=== PATIENT | male | born 1945 | race Two or more races ===

== ENCOUNTER 2024-07-08 10:04 | Inpatient (IN) | payer MEDICARE, SELFPAY ==
[2024-07-08] VITALS (15 sets, daily range): BP systolic 126–161; BP diastolic 60–78; PULSE 56–80; RESP 16–18; TEMP 36.6–36.9; O2SAT 98–100; BMI 27.1; BMI 24.5
--- NOTE | 2024-07-08 10:15 | EKG_ITS ---
[facility] Test Date: 2024-07-08 Pat Name: VANESSA IZAGUIRRE Department: Room: - Gender: Male Wardrobe Assistant: : [id number] Requested By: ED Temporary Provider Order Number: [id number] Reading MD: ED Temporary Provider Measurements Intervals [place] Rate: 66 P: 28 MT: 135 QRS: -28 QRSD: 126 T: 59 QT: 393 QTc: 413 Interpretive Statements SINUS RHYTHM BORDERLINE LEFT AXIS DEVIATION [QRS AXIS < -20] MODERATE INTRAVENTRICULAR CONDUCTION DELAY [110+ ms QRS DURATION] Compared to ECG 07/24/2020 16:14:12 Myocardial infarct finding no longer present /store/S0/[id number].pdf
--- NOTE | 2024-07-08 10:31 | PD.EDRME ---
Rapid Medical Screening Exam E Arrival date/time: 07/08/24 10:04 78-year-old male with past medical history of GI bleed presents to the emergency department reporting was sent by primary care provider for evaluation due to dark tarry stools and rectal bleeding. Chief Complaint: General Adult/Misc Complain Vital signs: Vital Signs Temperature 97.9 F 07/08/24 10:28 Pulse Rate 80 07/08/24 10:28 Respiratory Rate 18 07/08/24 10:28 Blood Pressure 161/78 H 07/08/24 10:28 Pulse Oximetry (%) 99 07/08/24 10:28 Oxygen Delivery Method Room Air 07/08/24 10:28
[2024-07-08 11:32] LABS: Basophils # (Auto) 0.1 Thou/mm3 (0.0-0.2); Basophils % (Auto) 1 % (0-2.5); Eosinophils # (Auto) 0.1 Thou/mm3 (0.0-0.5); Eosinophils % (Auto) 1 % (0-10); Immature Granulocytes % (Auto) 0 % (0-0); Immature Granulocytes Auto 0.03 Thou/mm3 (0.00-0.00); Lymphocytes % (Auto) 10 % (10-50); Mean Corpuscular HGB Conc 27.4 g/dl (31.0-37.0); Mean Corpuscular Hemoglobin 18.8 pg (25.0-35.0); Mean Corpuscular Volume 68 fL (80-100); Monocytes # (Auto) 0.9 Thou/mm3 (0.0-0.8); Monocytes % (Auto) 10 % (0-12); Neutrophils # (Auto) 7.6 Thou/mm3 (1.8-7.7); Neutrophils % (Auto) 78 % (37-80); Nucleated Red Blood Cell % 0 /100 WBC (0); Platelet Count 539 Thou/mm3 (140-440); RDW Standard Deviation 44.3 fL (35.1-43.9); Red Blood Count 2.72 Miln/mm3 (4.50-5.90); White Blood Count 9.7 Thou/mm3 (3.8-10.6)
[2024-07-08 11:42] LABS: Hematocrit 18.6 % (41.0-53.0); Partial Thromboplastin Time 24.4 Seconds (22.0-36.0); Prothrombin Time 11.2 Seconds (9.0-12.2)
[2024-07-08 11:43] LABS: Hemoglobin 5.1 g/dL (13.5-16.0)
--- NOTE | 2024-07-08 11:45 | PC.NURSE ---
Pt. here to bed 12 from home, pt.'s daughter at bedside, pt. states he was sent by his Doctor for low blood. Pt. states for 3 years he has had bleeding ulcers, pt. states he used to be a heavy drinker but has had no alcohol for 6 months. Pt. states when he walks he gets SOB and his legs start to hurt. Pt. states his stool has been dark. Pt. denies any vomiting. Pt. states no pain at this time.
--- NOTE | 2024-07-08 11:55 | PD.EDADULT ---
ED General RME/HPI General Chief complaint: General Adult/Misc Complain Stated complaint: DIZZY/CXP/LOW HGB 4.7, SENT BY PMD Time Seen by Provider: 07/08/24 11:45 Arrival date/time: 07/08/24 10:04 78 year old male with past medical history of anemia, GI bleed, alcohol abuse, present to emergency room with c/o of dizziness chest pain and low hgb, sent by PMD for blood transfusion. Per daughter patient had basic labs done 1 week, 1-2 weeks of dark stools . per patient alcohol free for 6 months. SEVERITY: Symptoms are described as being severe with limitations on activities of daily living CONTEXT: The patient is unable to identify any inciting events. DURATION/TIMING: The symptoms started approximately 1 week ago and have been constant since and have been progressive getting worse. ASSOCIATED SYMPTOMS: dizziness, chest pain, dark stool MODIFYING FACTORS: The patient is unable to identify any alleviating or aggravating symptoms. PERTINENT ROS: no fevers, no cough, no pleuritic pain, no ripping or tearing sensations, denies any lower extremity edema and no unilateral swelling, no nausea,vomiting, diarrhea, no dizziness/headache no rash no loc/syncope episode no abd/back pain no dsyuria,urgency,frequency PCP Aaron REVIEW OF SYSTEMS: See History of Present Illness - with the exception of those mentioned in the history of present illness, all other systems reviewed and reported as negative GENERAL: In general the patient is awake, interactive, in an emergency department gurney. HEAD/EYES/EARS/NOSE/THROAT: normo-cephalic, atraumatic, mucus membranes are moist, anicteric, palpebral conjunctiva is pink, trachea is midline. CARDIOVASCULAR: regular rate and regular rhythm, no murmurs, heart sounds are not distant, strong pulses in all four extremities that are equal and symmetric bilateral upper and lower extremities, normal capillary refill. CHEST/PULMONARY: normal chest rise and fall, good air movement, clear to auscultation bilaterally, normal inspiratory to expiratory ratios without evidence of respiratory distress. NECK: No midline/Paraspinal tenderness, no step off ROM/Strenght intact No Kernig and bruzinski sign. No trauma ABDOMEN: soft, not tender, no masses appreciated BACK: normal range of motion without pain. NEUROLOGICAL: cranio-facial features are symmetric, moves all four extremities equally without obvious limitations or weakness. EXTREMITY: no tenderness to palpation over the long bones or large joints of the bilateral upper and lower extremities, no joint swelling, no joint erythema, no signs of trauma, no unilateral leg swelling and no peripheral edema. SKIN: warm, dry, well-perfused, no jaundice, no rash, no telangiectasias or petechia. PSYCH: calm, cooperative, no evidence of psychosis or agitation RME / HPI RME / HPI narrative: 07/08/24 10:04 78-year-old male with past medical history of GI bleed presents to the emergency department reporting was sent by primary care provider for evaluation due to dark tarry stools and rectal bleeding. Related Data Previous Rx's ?Medication ?Instructions ?Recorded pantoprazole 40 mg tablet,delayed 40 mg PO QDAY #30 tabs 07/27/20 release (Protonix) Allergies Allergy/AdvReac Type Severity Reaction Status Date / Time No Known Allergies Allergy Verified 07/08/24 10:14 Course Course Course Narrative: plan ekg, basic labs, type screen blood transfusion [address] angio chest/abd protonix drip Quality Measures none Orders Category Date Time Status Horticultural Nursery Assistant Q4H START 00 Care 07/08/24 11:46 Active Continuous Pulse Oximetry Care 07/08/24 11:47 Active EKG (ED ONLY) *Do not use* NOW Care 07/08/24 10:15 Completed Consult to Gastroenterology Stat Cons 07/08/24 17:[address] angio chest abdomen pelvis Stat Exams 07/08/24 12:01 Completed EKG (ED Only) Stat Exams 07/08/24 10:15 Draft Alcohol, Blood Medical Stat Lab 07/08/24 10:57 Completed CBC Stat Lab 07/08/24 10:57 Completed Comprehensive Metabolic Panel Stat Lab 07/08/24 10:57 Completed Drug Screen,Urine Stat Lab 07/08/24 12:59 Completed Lipase Stat Lab 07/08/24 10:57 Completed PT [Prothrombin Time with INR] Stat Lab 07/08/24 10:57 Completed PTT [Partial Thromboplastin Time] Stat Lab 07/08/24 10:57 Completed Path Review Blood Smear Stat Lab 07/08/24 10:57 Completed Troponin I Stat Lab 07/08/24 10:57 Completed Type and Screen Stat Lab 07/08/24 10:57 Completed rbc [Red Blood Cells] Stat Lab 07/08/24 10:57 Completed Pantoprazole/Ns 80Mg IV Premix [Protonix/NS 80mg IV Med 07/08/24 12:03 Discontinued Premix] 80 mg in 100 ml IV X1 Vital Signs Vital signs: Vital Signs Temperature 97.9 F 07/08/24 10:28 Pulse Rate 80 07/08/24 10:28 Respiratory Rate 18 07/08/24 10:28 Blood Pressure 161/78 H 07/08/24 10:28 Pulse Oximetry (%) 99 07/08/24 10:28 Oxygen Delivery Method Room Air 07/08/24 10:28 Procedures -ED EKG Interpretation #1: Date of EK07/08/24 Time of EK:39 Rate: 66 Interpretation: Reviewed by me EKG Impression: Normal sinus rhythm, No acute ST-T changes and No ischemic changes MDM Patient data External records reviewed:: [facility] previous records Clinical information provided by:: patient and family Social determinants that could affect healthcare access:: none Patient has the following chronic illnesses:: anemia, gi bleed alcohol use How is presenting disease/condition affected by chronic disease/condition?: exacerbated by Evaluation data The following diagnostics were reviewed and interpreted by me:: lab results, radiology exam(s) and EKG tracing(s) Lab and/or radiology exams considered but not ordered:: none Interpretation Summary: CTA:Multiple noncalcified pulmonary nodules, with this study as baseline recommend 6 month follow-up CT chest without contrast Thickening of the lower wall of the esophagus, consider reflux esophagitis Gastritis pattern Suspicious for subtle mass in the cecum, recommend colonoscopy follow-up to exclude malignant neoplasm of the colon cbc: hgb 5.1 + anemia cmp wnl trop negative drug: negative alcohol negative Medications Medications considered but not ordered:: none Medication administrations:: Medication Administration History Discontinued Medications Pantoprazole Sodium (Protonix/Ns 80mg Iv Premix) 80 mg in 100 mls @ 400 mls/hr IV X1 ONE Stop: 07/08/24 12:17 Last Admin: 07/08/24 13:04 Dose: 400 mls/hr Documented By: ED as stated above Consultations Consultation(s) initiated? (list below): Yes Consultation #1 (Physician, Specialty, Details): GI: Dr. Rojas will come in for consult. clear diet and start on golytely, will do colonoscopy in the morning Diagnosis Differential Diagnosis ED Complaint MDM: GI bleeding, bleeding ulcer, sbo, colitis, anemia low hgb , mass Most likely diagnosis given after review of the tests above:: low hgb, Admission Indicated Admission indicated?: indicated Explain why admission is indicated or not indicated:: low hgb and mass in cecum Admission Request Was there a request for admission?: Yes Admission Attestation Admission request attestation: Discussed case with Dr. Rendon from Hospitalist service regarding admission. report will give report to caustic cresylate shift superintendent to admit patient. Discussed patients ED course, exam findings, labs, and radiology results. The Hospitalist agrees to accept the patient for admission. Disposition Plan Disposition Plan: Admit Medical Decision Making Differential Diagnosis Differential Diagnosis: GI bleeding, bleeding ulcer, sbo, colitis, anemia low hgb , mass Lab Data 07/08/24 10:57 07/08/24 10:57 Labs: Lab Results 07/08/24 07/08/24 Range/Units 10:57 12:59 WBC 9.7 (3.8-10.6) Thou/mm3 RBC 2.72 L (4.50-5.90) Miln/mm3 Hgb 5.1 L* (13.5-16.0) g/dL Hct 18.6 L* (41.0-53.0) % MCV 68 L (80-100) fL MCH 18.8 L (25.0-35.0) pg MCHC 27.4 L (31.0-37.0) g/dl RDW Std Deviation 44.3 H (35.1-43.9) fL Plt Count 539 H (140-440) Thou/mm3 Neut % (Auto) 78 (37-80) % Lymph % (Auto) 10 (10-50) % [place] % (Auto) 10 (0-12) % Eos % (Auto) 1 (0-10) % Baso % (Auto) 1 (0-2.5) % Neut # (Auto) 7.6 (1.8-7.7) Thou/mm3 Lymph # (Auto) 1.0 (1.0-4.8) Thou/mm3 [place] # (Auto) 0.9 H (0.0-0.8) Thou/mm3 Eos # (Auto) 0.1 (0.0-0.5) Thou/mm3 Baso # (Auto) 0.1 (0.0-0.2) Thou/mm3 Immature Gran # (Auto) 0.03 H (0.00-0.00) Thou/mm3 Absolute Nucleated RBC 0.00 (0.00-0.00) Thou/mm3 Immature Gran % 0 (0-0) % Nucleated RBC % 0 (0) /100 WBC Smear Path Review Sent to Pathologist PT 11.2 (9.0-12.2) Seconds INR 1.0 (0.9-1.3) APTT 24.4 (22.0-36.0) Seconds Sodium 133 L (136-145) mMol/L Potassium 4.0 (3.4-5.1) mMol/L Chloride 101 (98-107) mMol/L Carbon Dioxide 23.7 (20.0-31.0) mMol/L Anion Gap 8 (7-16) BUN 9 (9-23) mg/dL Creatinine 0.8 (0.6-1.3) mg/dL Estim Creat Clear Calc 86.2 (>60) mL/min eGFR > 60 (60 - ) See Note BUN/Creatinine Ratio 11 L (12-20) Ratio Glucose 167 H (74-106) mg/dL Calculated Osmolality 269 L (275-295) Calcium 9.3 (8.3-10.6) mg/dL Corrected Calcium 9.3 (8.5-10.1) mg/dL Total Bilirubin 0.5 (0.3-1.2) mg/dL AST < 10 (0-34) U/L ALT < 7 L (10-49) U/L Alkaline Phosphatase 65 (46-116) U/L Troponin I 0.030 (0.0-0.045) ng/mL Total Protein 7.6 (5.7-8.2) gm/dL Albumin 4.3 (3.4-4.8) gm/dL Globulin 3.3 (2.3-3.5) gm/dL Albumin/Globulin Ratio 1.3 (1.2-2.2) Lipase 26 (12-53) U/L Urine Opiates Screen Negative (Negative) Urine Fentanyl Screen Negative (Negative) Ur Barbiturates Screen Negative (Negative) U Amphetamin/Meth Scrn Negative (Negative) U Benzodiazepines Scrn Negative (Negative) U Cocaine Metab Screen Negative (Negative) U Marijuana (THC) Screen Negative (Negative) Ethyl Alcohol < 3.0 (0-10.0) mg/dL Blood Type O Positive Antibody Screen NEGATIVE Crossmatch See Detail Blood Bank Wristband ID Yes Discharge Plan Plan Patient Disposition: Admit Acute Care w/in Hospital Prescriptions/Referrals Prescriptions/Med Rec: No Action pantoprazole [Protonix] 40 mg tablet,delayed release (DR/EC) 40 mg PO QDAY Qty: 30 0RF Problem List Clinical Impression: Low hemoglobin, Acute GI bleeding, Cecum mass Patient/Caregiver Discharge Instructions Print Language: Peruvian Stand Alone Forms: Padmini Award Info., Patient Portal Info Letter
[2024-07-08 11:57] LABS: Alanine Aminotransferase < 7 U/L (10-49); Albumin, Serum 4.3 gm/dL (3.4-4.8); Albumin/Globulin Ratio 1.3 (1.2-2.2); Alkaline Phosphatase 65 U/L (46-116); Anion Gap 8 (7-16); Aspartate Amino Transferase < 10 U/L (0-34); BUN/Creatinine Ratio 11 Ratio (12-20); Bilirubin,Total 0.5 mg/dL (0.3-1.2); Blood Urea Nitrogen 9 mg/dL (9-23); Calcium 9.3 mg/dL (8.3-10.6); Calcium (Corrected) 9.3 mg/dL (8.5-10.1); Carbon Dioxide 23.7 mMol/L (20.0-31.0); Chloride 101 mMol/L (98-107); Creatinine (Component) 0.8 mg/dL (0.6-1.3); Estimated Creatinine Clearance 86.2 mL/min (>60); Globulin 3.3 gm/dL (2.3-3.5); Glucose 167 mg/dL (74-106); Lipase 26 U/L (12-53); Osmolality,Calculated 269 (275-295); Sodium 133 mMol/L (136-145); Total Protein 7.6 gm/dL (5.7-8.2); eGFR > 60 See Note
--- NOTE | 2024-07-08 12:01 | XR_ITS ---
Examination: CTA chest, with intravenous contrast. CTA abdomen, with intravenous contrast. CTA pelvis, with intravenous contrast. 2-D sagittal and coronal reconstructions. 3-D reconstructions. Date and time of exam: July 08, 2024 1642 hours INDICATIONS: Gastrointestinal bleeding today, with anemia on laboratory examination CTDI vol (mgy) 10.5 DLP (MGycm) 649 Technique: Multiple CTA images, 2.0 mm slice thickness, obtained chest, abdomen, pelvis, with the high-resolution 64 slice scanner. 100 cc Isovue-370 is administered intravenously. Sagittal and coronal 2-D reconstructions are obtained. 3-D reconstructions, angiographic images are obtained. 3-D postprocessing, including vascular maximum intensity projections. Low dose protocols were performed. One or more of the following dose reduction techniques were used; automated exposure control, adjustment of the mA and/or KV according to patient size, use of iterative reconstruction technique. Findings: No thoracic aortic aneurysm dilatation or dissection No pulmonary artery emboli No paratracheal tracheobronchial or bronchopulmonary adenopathy 6 mm pulmonary nodule left midlung image 146 4 mm pulmonary nodule right upper lobe and 47 3 mm pulmonary nodule right upper lobe image 158 4 mm pulmonary nodule lingular segment image 171 4 mm pulmonary nodule lingular segment image 201 3 mm pulmonary nodule right lower lobe image 222 No pneumonia or pulmonary edema Lower esophageal wall is thickened No visualized liver or splenic lesion Diffuse gastric mucosal thickening No pancreatic mass Minor nodular thickening left adrenal gland No renal or ureteral calculi Coronal image 79 suspicious for subtle masslike area in the cecum, axial image 217, measuring 5 cm in dimension No bowel obstruction Normal appendix Colonic diverticulosis Urinary bladder intact AP prostate dimension 4.2 cm Moderate osteopenia with advanced degenerative disc disease L5-S1 IMPRESSION: Multiple noncalcified pulmonary nodules, with this study as baseline recommend 6 month follow-up CT chest without contrast Thickening of the lower wall of the esophagus, consider reflux esophagitis Gastritis pattern Suspicious for subtle mass in the cecum, recommend colonoscopy follow-up to exclude malignant neoplasm of the colon
[2024-07-08 12:26] LABS: Path Review Blood Smear Sent to Pathologist
[2024-07-08 12:49] LABS: Alcohol, Blood Medical < 3.0 mg/dL (0-10.0)
[2024-07-08] MEDS: PANTOPRAZOLE/NS 80MG IV PREMIX 80 MG/100 ML BAG 400 MG IV (13:04)
--- NOTE | 2024-07-08 13:22 | PC.NURSE ---
pt. signed consent for blood transfusion. Daughter at bedside.
[2024-07-08 13:27] LABS: Amphetamine/Methamp Scrn,U Negative (Negative); Barbiturate Screen,Urine Negative (Negative); Benzodiazepines Screen,Urine Negative (Negative); Benzoylecgonine Screen, Ur Negative (Negative); Fentanyl Screen,Urine Negative (Negative); Opiate Screen,Urine Negative (Negative); THC Screen,Urine Negative (Negative)
--- NOTE | 2024-07-08 14:16 | PC.NURSE ---
Pt.'s Carla at bedside.
--- NOTE | 2024-07-08 14:17 | PC.NURSE ---
Pt. denies dizziness at this time, pt. states when he walks he gets dizzy.
--- NOTE | 2024-07-08 18:13 | EVENTNT_ITS ---
<Statement entered by Ashanti Arita MD - 07/11/24 14:50> Attending attestation: 78 year old male presented with fatigue found to have symptomatic anemia. CT noted mass and colonoscopy pending. I reviewed above note and agree with findings and plans. I have also personally examined the patient with medicine team and went over assessment and plan with medical team including architecture internship and resident physician. Documentation for date of: 07/08/24 Event Note Event Note: The patient is a 78-year-old male with significant past medical history of alcohol use disorder, hypertension, hypercholesterolemia who presented to ED with chief complaint of dizziness and chest pain with low hemoglobin was sent by PMD for blood transfusion. ED physician ordered 3 units PRBC, and consulted Dr. Rojas who will proceed with colonoscopy tomorrow. The patient is supposed to be started on GoLytely and clear liquid diet. As we received the call from ED physician after 6 PM, we will sign off this patient to the night team. The patient's management plan was discussed with my attending physician MD Andrew Pacheco MD, PGY2
--- NOTE | 2024-07-08 19:42 | PC.NURSE ---
IN TO ASSESS PT AT THIS TIME. INTRODUCED SELF TO PT. PT LYING IN GURNEY SPEAKING WITH RESIDENT. PT DENIES ANY PAIN AT THIS TIME. PT A/OX3 GCS 15. CALL LIGHT WITHIN REACH.BED AT LOWEST POSITION. DAUGHTER AT BEDSIDE,
--- NOTE | 2024-07-08 20:09 | ESHP_ITS ---
Documentation for date of: 07/08/24 [facility] History of Present Illness History of present illness: CC: low hemoglobin sent from PCP Patient is a 78-year-old male with a past medical history of hypertension, diabetes mellitus type 2 non-insulin dependent, GERD, peptic ulcer disease, hyperlipidemia (?), alcohol use disorder recently quit about 6 months ago who presented to the emergency room via primary care physician's office after hemoglobin result showed severe anemia. Patient stated he has been having lower GI bleed for the past 3 months but that it is not the first time this has happened. Described stools as dark . Increasing dyspnea upon exertion, patient states that after gardening he has to take a break and sit down in order to catch his breath. Positive for dizziness, patient stated that he feels lightheaded with exertion, denied seizure-like activity, and denied loss of consciousness. Dry cough. Per daughter at bedside, recent 20 lbs weight loss within the last 3 months. Decrease appetite. Denied any recent sick contacts, pyrexia, or chills. Negative for orthopnea and denied paroxysmal nocturnal orthopnea. [address] Rojas found hemorrhoids, diverticulosis, and sessile polyps. Hospitalization in [place] in 2021 for stomach ulcers . Admitted on (07/08/2024) for Acute GI bleed. ER Course: Vitals: BP 161/78, HR 80, RR 18, SpO2 99% RA CBC (07/08/2024): Hgb 5.1, Hct 18.6, MCV 68, Plt count 539 CMP (07/08/2024): Na 133, K 4.0, GFR >60, BUN 8, Cr 0.8 Glucose [address] Chest/Abdomen/Pelvis CTA (07/08/2024): Multiple noncalcified pulmonary nodules, with this study as baseline recommend 6, month follow-up CT chest without contrast. Thickening of the lower wall of the esophagus, consider reflux esophagitis. Gastritis pattern. Suspicious for subtle mass in the cecum, recommend colonoscopy follow-up to exclude malignant neoplasm of the colon EKG: Sinus Tachy Meds: Pantoprazole 80 mg IV X 1, 2 units of PRBC PMH: -Hypertension -Diabetes Mellitus Type 2 -Peptic Ulcer Disease -Hyperlipidemia (?) -Alcohol Use Disorder -GERD Past Surgical History: Colonoscopy 2019 [facility] Hospitalization for peptic ulcers 2021 Home Medication: -Non-Adherent to Medication (patient came in with 3 bags, mostly takes diabetic medication only) -Aspirin 81 mg-stopped taking aspirin/on and off -jentadueto xr 5-1000 mg -Lisinopril 5 mg (?) vs Lisinopril 20 mg ? -Furosemide 20 mg (?) not taking medication Allergies: None Social History: -Alcohol Use Disorder, drank a lot per daughter at bedside beer/vodka. Quit 6 months ago -Former Smoker, quit >20 years ago (could not recall how long or how many packs per day). Code Status: Full Code Review of Systems Review of Systems Narrative Review of Systems: General appearance: YES weight change (dropped 20 lbs), YES fatigue, NO weakness, NO fever, NO chills, NO night sweats, YES cough Skin: NO rash, NO itching, NO sores, NO moles HEENT: NO Trauma, NO nausea, NO vomiting, NO visual changes, NO blurry vision, NO double vision, NO tinnitus, NO vertigo, NO ear discharge, NO rhinorrhea, NO stuffiness, NO sneezing, NO allergy, NO epistaxis. NO Hoarseness, NO sore throat, NO swollen neck. Cardiac: NO Palpitations, YES dyspnea on exertion, NO orthopnea, NO paroxysmal nocturnal dyspnea, NO edema Respiratory: YES Shortness of Breath, NO Wheezing,YES Cough, NO Sputum, NO hemoptysis GI:Decrease appetite, NO nausea, NO vomiting, NO dysphagia, NO changes in bowel frequency, YES stool color, dark stool, NO diarrhea, NO constipation, NO hemetemesis previously had hemetemsis with hemorrhoids, YES hemorrhoids, YES melena, NO hematechezia, YES abdominal pain, NO jaundice Renal: NO frequency, NO hesitancy, NO urgency, NO hematuria, NO nocturia, NO incontinence MSK: NO muscle weakness, NO gout, NO arthritis, NO muscle stiffness Neuro: NO headaches, NO tremors, NO weakness, NO paralysis, NO seizures, NO loss of consciousness, NO numbness. Hem: YES anemia, NO easy bruising/bleeding, NO petechiae, NO purpura Endo: NO heat/cold intolerance, NO excessive sweating, NO polyuria, NO polydipsia, NO polyphagia, NO thyroid problems, YES diabetes Pysch: NO mood, NO anxiety, NO depression Exam Vital Signs Temp Pulse Resp BP Pulse Ox O2 Del Method 98.1 F 63 16 141/64 H 100 Room Air 07/08/24 19:41 07/08/24 19:41 07/08/24 19:41 07/08/24 19:41 07/08/24 19:41 07/08/24 19:41 Narrative Exam General Appearance: Alert & Oriented X3, well-nourished male who is lying in bed in no acute distress HEENT: Skull symmetrical and atraumatic. Conjunctivae pale pink and moist. Pupils equal, round, reactive to light and accommodation (PERRL). External ear without lesion or discharge. Straight, nares patient, mucosa pink, no discharge. No thyroid nodule appreciated. No cervical lymphadenopathy. Cardio: Normal Rate and Rhythm with S1 and S2 heart sounds. No murmurs or extra heart sounds auscultated. No bruits on carotid auscultation. No peripheral edema or cyanosis. Lungs: Symmetric with good expansion. Chest and back non-tender. Breath sounds vesicular without crackles, wheezing or rhonchi Abdomen: Left Lower Quadrant tenderness upon palpation, Non-distended, Normal Reactive Bowel Sounds Neuro: Alert, cooperative, oriented to person, place, and time. Speech clear. CN grossly intact. Upper motor strength 5/5 and Lower motor strength 5/5. Sensation intact. Results: Labs 07/08/24 10:57 07/08/24 10:57 Labs: Short CBC 07/08/24 Range/Units 10:57 WBC 9.7 (3.8-10.6) Thou/mm3 Hgb 5.1 L* (13.5-16.0) g/dL Hct 18.6 L* (41.0-53.0) % Plt Count 539 H (140-440) Thou/mm3 BMP 07/08/24 10:57 Sodium 133 L Potassium 4.0 Chloride 101 Carbon Dioxide 23.7 BUN 9 Creatinine 0.8 Glucose 167 H Calcium 9.3 Cardiac Enzymes 07/08/24 Range/Units 10:57 Troponin I 0.030 (0.0-0.045) ng/mL Liver Function 07/08/24 Range/Units 10:57 Total Bilirubin 0.5 (0.3-1.2) mg/dL AST < 10 (0-34) U/L ALT < 7 L (10-49) U/L Alkaline Phosphatase 65 (46-116) U/L Albumin 4.3 (3.4-4.8) gm/dL Quality Measures Quality Measures none Advance care planning discussed with:: patient Medications Home Medications and Allergies Allergies Allergy/AdvReac Type Severity Reaction Status Date / Time No Known Allergies Allergy Verified 07/08/24 10:14 Visit Medications Acetaminophen (Acetaminophen 325 Mg Tablet) 650 mg PO Q6H PRN PRN Reason: Mild Pain 1-3 or Fever >100.3 Stop: 08/07/24 20:01 Dextrose (Dextrose 50%-Water Inj 50 Ml Syringe) 25 ml IV Q15MIN PRN PRN Reason: BG 50-70 responsive npo pt Stop: 08/07/24 20:06 Dextrose (Dextrose 50%-Water Inj 50 Ml Syringe) 50 ml IV Q15MIN PRN PRN Reason: BG <50 OR BG <70 & pt unresponsive Stop: 08/07/24 20:06 Glucagon (Glucagon Inj 1 Mg Vial) 1 mg IM Q15MIN PRN PRN Reason: BG <70, and no IV access Insulin Human Lispro (Insulin Lispro (Admelog) 1 Unit/0.01 Ml Unit) 0 unit SC ACHS [facility]; Protocol Stop: 08/07/24 20:59 Lisinopril (Lisinopril 2.5 Mg Tablet) 5 mg PO QDAY [facility] Stop: 08/07/24 20:14 Ondansetron HCl (Ondansetron Inj 2 Mg/Ml Inj 2 Ml) 4 mg IV Q6H PRN; Protocol PRN Reason: NAUSEA OR VOMITING Stop: 08/07/24 20:01 Pantoprazole Sodium (Pantoprazole Inj 40 Mg Vial) 40 mg IVP Q12HR [facility] Stop: 08/07/24 20:59 Discontinued Medications Pantoprazole Sodium (Protonix/Ns 80mg Iv Premix) 80 mg in 100 mls @ 400 mls/hr IV X1 ONE Stop: 07/08/24 12:17 Last Admin: 07/08/24 13:04 Dose: 400 mls/hr Polyethylene Glycol/Electrolytes (Na Hart/Nahco3/Sidney/Peg (Golytely) 4,000 Ml Btl) 4,000 ml PO X1 ONE Stop: 07/08/24 18:10 Assessment & Plan Plan Patient is a 78-year-old male with a past medical history of hypertension, diabetes mellitus type 2, GERD, peptic ulcer disease, hyperlipidemia (?), alcohol use disorder recently quit about 6 months ago admitted on 07/08/2024 for acute GI bleed. #Acute GI Blood Loss #Acute Anemia #Dyspnea #Pre-syncope Etiology: Per history increasing dyspnea upon exertion and feeling light headed, which worsened within the last 3 months and with increasing melena in stools likely caused by acute blood loss. Given description of melena, upper GI loss such from worsening peptic ulcers can not be excluded. Likely worsened by previous history of alcohol use disorder. 2 units of PRBCs in ER. DDx: Given recent weight loss, previous history of polpys, and decrease appetite with CT finding of mass in cecum, malignancy can not be ruled out at this time. Less pre-syncope and increasing dyspena secondary to cardiac causes as EKG was unremarkable, no history of CHF. Diagnostic Testing: Vitals: BP 161/78, HR 80, RR 18, SpO2 99% RA CBC (07/08/2024): Hgb 5.1, Hct 18.6, MCV 68, Plt count 539 CMP (07/08/2024): Na 133, K 4.0, GFR >60, BUN 8, Cr 0.8 Glucose [address] Chest/Abdomen/Pelvis CTA (07/08/2024): Multiple noncalcified pulmonary nodules, with this study as baseline recommend 6, month follow-up CT chest without contrast. Thickening of the lower wall of the esophagus, consider reflux esophagitis. Gastritis pattern. Suspicious for subtle mass in the cecum, recommend colonoscopy follow-up to exclude malignant neoplasm of the colon EKG: Sinus Tachy Plan: -NPO after Midnight -GoLytely -2 units of PRBs in ER -Hgb & Hct post transfusion 1 AM draw -Protonix BID -Consult [employer], Dr. Rojas, appreciate recommendations (consulted from ER) #Diabetes Mellitus Type 2, non-insulin Patient is currently on Jentadueto Xr and seems to be adherent to medication. Last known A1c 5.4 on 08/05/2020. Glucose on admission 167. Plan -Sliding Scale Lispro (elders) -Follow up on Fasting Glucose AM Draw -Consider A1c during morning #Hypertension Patient is non-adherant to his hypertension medication and has several bottles of Lisinopril. Patient is also complaining of a cough which could be secondary to GERD but also related to JAYLIN-inhibitors. Plan: -Hold home Lisinopril 5 mg -Start Losartan 25 mg QDay #Hx of GERD #Hx of Peptic Ulcers Given past medical history of peptic ulcers per patient history and CT findings of thickened lower esophageal wall, likely indicating GERD with gastritis continue to Protonix. Plan Protonix BID #Incidental Pulmonary Nodules Follow up outpatient in 6 months Health Maintenance: Disp: Pt is currently admitted to floors for further management of acute GI blood loss, awaiting colonoscopy FEN: DVT: on subQ heparin Code: Full/DNR - The patient's plan was discussed with attending Dr. Isatu Mayo MD PGY1 Internal Medicine Attending Provider Attestation/Addendum I reviewed labs, imaging, EKG, home medications and prior available records. Face to face evaluation was performed by me. I have personally examined the patient and discussed assessment and plan with the IM team. I reviewed the resident note and agree with the plan with exceptions as below. 78-year-old male with history of hypertension, hyperlipidemia, peptic ulcer disease, and alcohol abuse who did not drink for the last 6 months, who presented with a chief complaint of dizziness, epigastric pain, and constipation. He was found to have acute symptomatic anemia. Acute symptomatic anemia: Likely in the setting of GI bleed which could be upper versus lower. 2 PRBC ordered in the ED. Monitor H&H posttransfusion. Management of GI bleed as below. GI bleed: Likely upper. In the setting of reported history of peptic ulcer disease. CT scan did show gastritis and concern for colonic mass. Patient/family is aware of this finding. Hold aspirin. Started the patient on IV Protonix 40 mg twice daily. Consulted GI for EGD/colonoscopy. N.p.o. after midnight. Pulmonary nodules: Incidental finding. Recommend follow-up in [address] chest without contrast. Dry cough: Hold home lisinopril. Albuterol as needed. Can use ARB instead.
[2024-07-08] MEDS: LOSARTAN POTASSIUM 25 MG TABLET PO (21:16)
[2024-07-08] MEDS: PANTOPRAZOLE INJ 40 MG VIAL IVP (21:16)
--- NOTE | 2024-07-08 22:55 | PD.IMCONS ---
HPI Data of Consult Requesting Physician: Lui Lunsford MD Primary Care Provider: Lencho Aaron MD Consult Narrative Reason for consult: H/H 5.1/18.6 abnormal CTAP History of present illness: 78 years male with history of hypertension and diabetes mellitus type 2 has been feeling weak short of breath presented to hospital with dizziness She had a blood workup done by the PCP and was found to be anemic sent to the emergency room He was found to have a hemoglobin of 5.1 hematocrit 18.6 with a platelet count of 5 39,000 BUN [address] abdomen and pelvis showed possible mass in the ascending colon area cecum in that location thickening of the esophageal wall and also gastric wall I was consulted cc:: cc: Lui Lunsford MD Review of Systems Review of Systems Systems Reviewed: All systems reviewed, normal except as documented Past Medical History Surgical History OTHER SURGICAL HX: As in the history of present illness Meds Home Medications and Allergies Home Medications ?Medication ?Instructions ?Recorded ?Confirmed ?Type No Known Home Medications 07/09/24 07/09/24 History Allergies Allergy/AdvReac Type Severity Reaction Status Date / Time No Known Allergies Allergy Verified 07/08/24 10:14 Exam Vital Signs Temp Pulse Resp BP Pulse Ox O2 Del Method 98.1 F 67 18 148/66 H 100 Room Air 07/08/24 20:00 07/08/24 21:16 07/08/24 20:00 07/08/24 21:16 07/08/24 20:00 07/08/24 19:41 Constitutional Comments: Chronically ill-appearing Routine Respiratory Exam Comments: Normal to auscultation Routine Abdominal Exam Comments: Soft nontender Results Labs 07/09/24 14:53 07/09/24 05:22 Labs: Short CBC 07/08/24 Range/Units 10:57 WBC 9.7 (3.8-10.6) Thou/mm3 Hgb 5.1 L* (13.5-16.0) g/dL Hct 18.6 L* (41.0-53.0) % Plt Count 539 H (140-440) Thou/mm3 BMP 07/08/24 10:57 Sodium 133 L Potassium 4.0 Chloride 101 Carbon Dioxide 23.7 BUN 9 Creatinine 0.8 Glucose 167 H Calcium 9.3 Cardiac Enzymes 07/08/24 Range/Units 10:57 Troponin I 0.030 (0.0-0.045) ng/mL Liver Function 07/08/24 Range/Units 10:57 Total Bilirubin 0.5 (0.3-1.2) mg/dL AST < 10 (0-34) U/L ALT < 7 L (10-49) U/L Alkaline Phosphatase 65 (46-116) U/L Albumin 4.3 (3.4-4.8) gm/dL Assessment and Plan Additional Assessment & Plan Additional Plan: # Occult GI bleeding # Acute posthemorrhagic anemia # Abnormal CT scanning of the abdomen and pelvis Plan Agree with blood transfusion GoLytely prep Consent obtained for fiberoptic colonoscopy with possible biopsy possible polypectomy under intravenous moderate sedation Patient will also need fiberoptic upper endoscopy after colonoscopy to evaluate the CAT scan abnormalities of thickening of the distal esophagus as well as gastric antrum Other medical problems include # Multiple pulmonary nodules most likely may represent metastatic colon carcinoma # Diabetes mellitus type 2 # Essential hypertension Thank you very much for the opportunity to participate in the care of this patient I
[2024-07-09] VITALS (28 sets, daily range): BP systolic 118–180; BP diastolic 57–87; PULSE 51–66; RESP 12–99; TEMP 36.1–36.7; O2SAT 92–100; BMI 24.4
[2024-07-09] MEDS: NA SU/NAHCO3/KC/PEG (Golytely) 4,000 ML BTL 4000 ML PO (00:12)
[2024-07-09 01:05] LABS: Hematocrit 21.2 % (41.0-53.0); Hemoglobin 6.2 g/dL (13.5-16.0)
[2024-07-09 05:37] LABS: Basophils # (Auto) 0.1 Thou/mm3 (0.0-0.2); Basophils % (Auto) 1 % (0-2.5); Eosinophils # (Auto) 0.3 Thou/mm3 (0.0-0.5); Eosinophils % (Auto) 4 % (0-10); Immature Granulocytes % (Auto) 0 % (0-0); Immature Granulocytes Auto 0.02 Thou/mm3 (0.00-0.00); Lymphocytes # (Auto) 1.3 Thou/mm3 (1.0-4.8); Lymphocytes % (Auto) 13 % (10-50); Mean Corpuscular HGB Conc 29.2 g/dl (31.0-37.0); Mean Corpuscular Hemoglobin 20.9 pg (25.0-35.0); Mean Corpuscular Volume 72 fL (80-100); Monocytes # (Auto) 1.3 Thou/mm3 (0.0-0.8); Monocytes % (Auto) 14 % (0-12); Neutrophils # (Auto) 6.5 Thou/mm3 (1.8-7.7); Neutrophils % (Auto) 68 % (37-80); Nucleated Red Blood Cell # 0.02 Thou/mm3 (0.00-0.00); Nucleated Red Blood Cell % 0 /100 WBC (0); Platelet Count 414 Thou/mm3 (140-440); RDW Standard Deviation 50.5 fL (35.1-43.9); Red Blood Count 3.01 Miln/mm3 (4.50-5.90); White Blood Count 9.5 Thou/mm3 (3.8-10.6)
[2024-07-09 05:43] LABS: Hematocrit 21.6 % (41.0-53.0); Hemoglobin 6.3 g/dL (13.5-16.0)
[2024-07-09 06:28] LABS: Alanine Aminotransferase < 7 U/L (10-49); Albumin, Serum 3.7 gm/dL (3.4-4.8); Albumin/Globulin Ratio 1.2 (1.2-2.2); Alkaline Phosphatase 56 U/L (46-116); Anion Gap 5 (7-16); Aspartate Amino Transferase 10 U/L (0-34); BUN/Creatinine Ratio 14 Ratio (12-20); Bilirubin,Total 0.8 mg/dL (0.3-1.2); Blood Urea Nitrogen 11 mg/dL (9-23); Calcium (Corrected) 9.2 mg/dL (8.5-10.1); Carbon Dioxide 26.2 mMol/L (20.0-31.0); Chloride 106 mMol/L (98-107); Creatinine (Component) 0.8 mg/dL (0.6-1.3); Estimated Creatinine Clearance 86.2 mL/min (>60); Globulin 3.1 gm/dL (2.3-3.5); Glucose 110 mg/dL (74-106); Osmolality,Calculated 274 (275-295); Potassium 3.8 mMol/L (3.4-5.1); Sodium 137 mMol/L (136-145); Total Protein 6.8 gm/dL (5.7-8.2); eGFR > 60 See Note
[2024-07-09] MEDS: PANTOPRAZOLE INJ 40 MG VIAL IVP ×2 (08:56→20:51)
[2024-07-09] MEDS: LOSARTAN POTASSIUM 25 MG TABLET PO (08:56)
--- NOTE | 2024-07-09 13:12 | CHAP ---
09:30 AM Visited by spiritual care volunteer Provided prayer for Patient.
--- NOTE | 2024-07-09 13:42 | ESPR_ITS ---
<Statement entered by Ashanti Arita MD - 07/11/24 14:50> Attending attestation: 78 year old male presented with fatigue found to have symptomatic anemia. CT noted mass and colonoscopy pending. I reviewed above note and agree with findings and plans. I have also personally examined the patient with medicine team and went over assessment and plan with medical team including internist medical doctor md and resident physician. Documentation for date of: 07/09/24 Subjective Subjective Interval history: No acute overnight events. Patient tolerating bowel prep well, states last BM was clear. Denies fever, chills, headaches, chest pain, sob, cough, GI or urinary symptoms. Exam Vital Signs Temp Pulse Resp BP Pulse Ox O2 Del Method O2 Flow Rate 97.2 F 59 L 23 H 151/68 H 99 Room Air 0 07/09/24 11:59 07/09/24 11:59 07/09/24 11:59 07/09/24 11:59 07/09/24 11:59 07/09/24 11:59 07/09/24 05:00 Narrative Exam GENERAL: Normal appearing elderly male, NAD HEENT: NCAT.?LAURA. Oral mucosa is moist. Patent Nares NECK: Supple, nontender, no thyromegaly, no meningismus, no JVD, no step offs CHEST: Symmetrical, atraumatic, and with equal expansion, Nontender on palpation no deformity and no crepitus. CARDIOVASCULAR: RRR, no m/g/r LUNGS: CTAB, no w/r/r. Symmetrical chest rise. No intercostal subcostal retraction. ABDOMEN: Soft, flat, nontender. No guarding/rebound tenderness/masses. +BS EXTREMITIES: Nontender.? No edema/cyanosis.?Moves all 4 extremities well, with full ROM and good CSM. SKIN: Warm and dry, no jaundice/rashes. MSK: No lumbar or midline, no CVA, no paraspinal muscle spasm or tenderness. NEURO: ERWIN x4, CN II-XII grossly intact.?No focal neurologic deficits. PSYCHIATRIC: Normal mood and affect, cooperative, no SI or HI or hallucinations. Objective Labs 07/09/24 14:53 07/09/24 05:22 Labs: Laboratory Results - last 24 hr 07/08/24 07/09/24 07/09/24 10:57 00:34 05:22 WBC 9.5 RBC 3.01 L Hgb 6.2 L* D 6.3 L* Hct 21.2 L* 21.6 L* MCV 72 L MCH 20.9 L MCHC 29.2 L RDW Std Deviation 50.5 H Plt Count 414 D Neut % (Auto) 68 Lymph % (Auto) 13 [place] % (Auto) 14 H Eos % (Auto) 4 Baso % (Auto) 1 Neut # (Auto) 6.5 Lymph # (Auto) 1.3 [place] # (Auto) 1.3 H Eos # (Auto) 0.3 Baso # (Auto) 0.1 Immature Gran # (Auto) 0.02 H Absolute Nucleated RBC 0.02 H Immature Gran % 0 Nucleated RBC % 0 Sodium 137 Potassium 3.8 Chloride 106 Carbon Dioxide 26.2 Anion Gap 5 L BUN 11 Creatinine 0.8 Estim Creat Clear Calc 86.2 eGFR > 60 BUN/Creatinine Ratio 14 Glucose 110 H D Calculated Osmolality 274 L Calcium 9.0 Corrected Calcium 9.2 Total Bilirubin 0.8 AST 10 ALT < 7 L Alkaline Phosphatase 56 Total Protein 6.8 Albumin 3.7 D Globulin 3.1 Albumin/Globulin Ratio 1.2 Blood Type O Positive Antibody Screen NEGATIVE Crossmatch See Detail Blood Bank Wristband ID Yes Quality Measures Quality Measures none Advance care planning discussed with:: patient Assessment & Plan Assessment Current Active Medications: Generic Name Dose Route Start Last Admin Trade Name Freq PRN Reason Stop Dose Admin Acetaminophen 650 mg 07/08/24 20:02 Acetaminophen 325 Mg Tablet PO 08/07/24 20:01 Q6H PRN Mild Pain 1-3 or Fever >100.3 Dextrose 25 ml 07/08/24 20:07 Dextrose 50%-Water Inj 50 Ml Syringe IV 08/07/24 20:06 Q15MIN PRN BG 50-70 responsive npo pt Dextrose 50 ml 07/08/24 20:07 Dextrose 50%-Water Inj 50 Ml Syringe IV 08/07/24 20:06 Q15MIN PRN BG <50 OR BG <70 & pt unresponsive Glucagon 1 mg 07/08/24 20:07 Glucagon Inj 1 Mg Vial IM Q15MIN PRN BG <70, and no IV access Insulin Human Lispro 0 unit 07/09/24 06:00 07/09/24 13:21 Insulin Lispro (Admelog) 1 Unit/0.01 Ml Unit SC 08/08/24 05:59 Not Given Q6HR HANNA Protocol Losartan Potassium 25 mg 07/08/24 20:30 07/09/24 08:56 Losartan Potassium 25 Mg Tablet PO 08/07/24 20:29 25 mg QDAY HANNA Administration Ondansetron HCl 4 mg 07/08/24 20:02 Ondansetron Inj 2 Mg/Ml Inj 2 Ml IV 08/07/24 20:01 Q6H PRN NAUSEA OR VOMITING Protocol Pantoprazole Sodium 40 mg 07/08/24 21:00 07/09/24 08:56 Pantoprazole Inj 40 Mg Vial IVP 08/07/24 20:59 40 mg Q12HR HANNA Administration Plan In summary: 78-year-old male with PMHx of HTN, T2DM, GERD, PUD, HLD, alcohol use disorder admitted for acute GI bleed. Patient n.p.o., on bowel prep for colonoscopy with Dr. Rojas. # Acute GI Blood Loss: Upper versus lower GI bleed # Dyspnea # Pre-syncope # GERD # PUD History of melanic stool, history of PUD, GERD, alcohol use (quit 6 months ago) Dyspnea and presyncope without fall 2/2 blood loss Hgb 5.1 on admission, s/p 3 units, repeat Hgb 6.3 CT mass in cecum, thickening lower esophagus Last colonoscopy 2019 with hemorrhoids, diverticulosis, sessile polyp ? N.p.o., bowel prep ? Continue PROTONIX 40 IV BID ? Colonoscopy with Dr. Rojas, appreciate recommendations ? Avoid NSAIDs ? Transfuse if Hgb less than 7 # T2DM GLUCOSE 167, pending A1c ? Holding home meds ? INSULIN sliding scale ? Daily GLUCOSE # Hypertension History of hypertension, on LISINOPRIL, complains of chronic cough BP 167/78 ? Holding home LISINOPRIL 5 mg ? Continue LOSARTAN 25 mg daily ? Consider discharging patient on LOSARTAN 25 mg daily of LISINOPRIL # Incidental Pulmonary Nodules As seen on CT: Multiple noncalcified pulmonary nodules ? Recommended follow-up with PCP outpatient Health maintenance Diet: NPO GI prophylaxis: PROTONIX DVT prophylaxis: SCD CODE STATUS: Full code Disposition: pending colonoscopy Patient case was discussed with attending, Dr. Juan J MD, and senior residents Dr. Jay Hankins and Dr. Rendon. Mamie Chen, DO PGYI Senior Resident Attestation: The patient is a 78-year-old male with significant past medical history of hypertension, DM 2, GERD, PUD, hyperlipidemia, alcohol due disorder currently admitted for acute blood loss anemia. Patient reported passing clear liquid as stool, after couple episodes of melenic stool. He reported doing better. His vitals were stable. Physical examination was unremarkable. Posttransfusion H&H was 7.0. The patient is pending colonoscopy this afternoon by GI Dr. Rojas. We will repeat H&H every 8 hourly and transfuse if hemoglobin less than 7. I discussed with and supervised the internist medical doctor md physician involved in the care of this patient. I personally saw and examined the patient and discussed the assessment and plan with the entire medicine team, including my attending. I agree with the assessment and plan as documented above. Andrew Rendon MD PGY2 Internal Medicine
--- NOTE | 2024-07-09 14:38 | PC.PT ---
PT eval only. Patient is I with transfers and ambulation without AD.
[2024-07-09 15:18] LABS: Hematocrit 23.6 % (41.0-53.0)
--- NOTE | 2024-07-09 18:03 | PC.NURSE ---
Patient was taken to endo for procedure at this time.
--- NOTE | 2024-07-09 19:05 | SUR.PHASEI ---
1905: Pt. AAOx4, vitals stable, breathing unlabored, no complaint of pain or nausea, no dressing in place, no active bleed noted, report received from Elaine SALAS and Becky SALAS.
--- NOTE | 2024-07-09 19:33 | SUR.PHASEI ---
1933: Pt. AAOx4, vitals stable, breathing unlabored, no complaint of pain or nausea, no dressing in place, no active bleed noted, gave report to Wanda SALAS prior to transfer to room 376. Pt. tolerated bites of ice chips well, family made aware of transfer to room.
[2024-07-09 20:00] LABS: Carcinoembryonic Antigen 1.1 ng/mL (0.0-5.0)
[2024-07-09 22:43] LABS: Hemoglobin 6.5 g/dL (13.5-16.0)
[2024-07-10] VITALS (32 sets, daily range): BP systolic 124–175; BP diastolic 61–82; PULSE 52–74; RESP 12–98; TEMP 36.1–37; O2SAT 95–100
[2024-07-10 06:04] LABS: Basophils # (Auto) 0.1 Thou/mm3 (0.0-0.2); Basophils % (Auto) 1 % (0-2.5); Eosinophils # (Auto) 0.4 Thou/mm3 (0.0-0.5); Eosinophils % (Auto) 4 % (0-10); Hematocrit 26.2 % (41.0-53.0); Immature Granulocytes % (Auto) 0 % (0-0); Immature Granulocytes Auto 0.03 Thou/mm3 (0.00-0.00); Lymphocytes # (Auto) 0.9 Thou/mm3 (1.0-4.8); Lymphocytes % (Auto) 9 % (10-50); Mean Corpuscular HGB Conc 30.2 g/dl (31.0-37.0); Mean Corpuscular Hemoglobin 22.6 pg (25.0-35.0); Mean Corpuscular Volume 75 fL (80-100); Monocytes # (Auto) 1.2 Thou/mm3 (0.0-0.8); Monocytes % (Auto) 11 % (0-12); Neutrophils # (Auto) 8.1 Thou/mm3 (1.8-7.7); Neutrophils % (Auto) 76 % (37-80); Nucleated Red Blood Cell % 0 /100 WBC (0); Platelet Count 404 Thou/mm3 (140-440); RDW Standard Deviation 55.4 fL (35.1-43.9); White Blood Count 10.7 Thou/mm3 (3.8-10.6)
[2024-07-10 06:05] LABS: Hemoglobin 7.9 g/dL (13.5-16.0)
[2024-07-10 06:47] LABS: Alanine Aminotransferase < 7 U/L (10-49); Albumin, Serum 3.4 gm/dL (3.4-4.8); Albumin/Globulin Ratio 1.1 (1.2-2.2); Alkaline Phosphatase 56 U/L (46-116); Anion Gap 7 (7-16); Aspartate Amino Transferase 10 U/L (0-34); BUN/Creatinine Ratio 9 Ratio (12-20); Bilirubin,Total 0.9 mg/dL (0.3-1.2); Blood Urea Nitrogen 7 mg/dL (9-23); Calcium 8.8 mg/dL (8.3-10.6); Calcium (Corrected) 9.3 mg/dL (8.5-10.1); Carbon Dioxide 25.9 mMol/L (20.0-31.0); Chloride 105 mMol/L (98-107); Creatinine (Component) 0.8 mg/dL (0.6-1.3); Estimated Creatinine Clearance 86.2 mL/min (>60); Globulin 3.1 gm/dL (2.3-3.5); Glucose 86 mg/dL (74-106); Osmolality,Calculated 272 (275-295); Potassium 3.8 mMol/L (3.4-5.1); Sodium 138 mMol/L (136-145); Total Protein 6.5 gm/dL (5.7-8.2); eGFR > 60 See Note
--- NOTE | 2024-07-10 07:58 | ESPR_ITS ---
<Statement entered by Ashanti Arita MD - 07/11/24 14:51> Attending attestation: 78 year old male presented with fatigue found to have symptomatic anemia. CT noted mass and colonoscopy finding of mass likely malignancy. Pending surgical intervention given bleeding mass. Hgb stable after blood transfusion. I reviewed above note and agree with findings and plans. I have also personally examined the patient with medicine team and went over assessment and plan with medical team including internist and resident physician. Documentation for date of: 07/10/24 Subjective Subjective Interval history: No acute overnight events. Patient maintained n.p.o. for EGD later today and possible surgery tomorrow. Denies fever, chills, headaches, chest pain, sob, cough, GI or urinary symptoms. Exam Vital Signs Temp Pulse Resp BP Pulse Ox O2 Del Method O2 Flow Rate 97.1 F 61 20 144/67 H 96 Room Air 0 07/10/24 07:44 07/10/24 07:44 07/10/24 07:44 07/10/24 07:44 07/10/24 07:44 07/10/24 07:44 07/10/24 03:52 Narrative Exam GENERAL: Normal appearing elderly male, NAD HEENT: NCAT.?LAURA. Oral mucosa is moist. Patent Nares NECK: Supple, nontender, no thyromegaly, no meningismus, no JVD, no step offs CHEST: Symmetrical, atraumatic, and with equal expansion, Nontender on palpation no deformity and no crepitus. CARDIOVASCULAR: RRR, no m/g/r LUNGS: CTAB, no w/r/r. Symmetrical chest rise. No intercostal subcostal retraction. ABDOMEN: Soft, flat, nontender. No guarding/rebound tenderness/masses. +BS EXTREMITIES: Nontender.? No edema/cyanosis.?Moves all 4 extremities well, with full ROM and good CSM. SKIN: Warm and dry, no jaundice/rashes. MSK: No lumbar or midline, no CVA, no paraspinal muscle spasm or tenderness. NEURO: ERWIN x4, CN II-XII grossly intact.?No focal neurologic deficits. PSYCHIATRIC: Normal mood and affect, cooperative, no SI or HI or hallucinations. Objective Labs 07/10/24 05:21 07/10/24 05:21 Labs: Laboratory Results - last 24 hr 07/08/24 07/09/24 07/09/24 10:57 14:53 22:24 WBC RBC Hgb 7.0 L 6.5 L* Hct 23.6 L 22.0 L MCV MCH MCHC RDW Std Deviation Plt Count Neut % (Auto) Lymph % (Auto) [place] % (Auto) Eos % (Auto) Baso % (Auto) Neut # (Auto) Lymph # (Auto) [place] # (Auto) Eos # (Auto) Baso # (Auto) Immature Gran # (Auto) Absolute Nucleated RBC Immature Gran % Nucleated RBC % Sodium Potassium Chloride Carbon Dioxide Anion Gap BUN Creatinine Estim Creat Clear Calc eGFR BUN/Creatinine Ratio Glucose Calculated Osmolality Calcium Corrected Calcium Total Bilirubin AST ALT Alkaline Phosphatase Total Protein Albumin Globulin Albumin/Globulin Ratio Carcinoembryonic Ag 1.1 Blood Type O Positive Antibody Screen NEGATIVE Crossmatch See Detail Blood Bank Wristband ID Yes 07/10/24 05:21 WBC 10.7 H RBC 3.50 L Hgb 7.9 L D Hct 26.2 L MCV 75 L MCH 22.6 L MCHC 30.2 L RDW Std Deviation 55.4 H Plt Count 404 Neut % (Auto) 76 Lymph % (Auto) 9 L [place] % (Auto) 11 Eos % (Auto) 4 Baso % (Auto) 1 Neut # (Auto) 8.1 H Lymph # (Auto) 0.9 L [place] # (Auto) 1.2 H Eos # (Auto) 0.4 Baso # (Auto) 0.1 Immature Gran # (Auto) 0.03 H Absolute Nucleated RBC 0.00 Immature Gran % 0 Nucleated RBC % 0 Sodium 138 Potassium 3.8 Chloride 105 Carbon Dioxide 25.9 Anion Gap 7 BUN 7 L Creatinine 0.8 Estim Creat Clear Calc 86.2 eGFR > 60 BUN/Creatinine Ratio 9 L Glucose 86 Calculated Osmolality 272 L Calcium 8.8 Corrected Calcium 9.3 Total Bilirubin 0.9 AST 10 ALT < 7 L Alkaline Phosphatase 56 Total Protein 6.5 Albumin 3.4 Globulin 3.1 Albumin/Globulin Ratio 1.1 L Carcinoembryonic Ag Blood Type Antibody Screen Crossmatch Blood Bank Wristband ID Quality Measures Quality Measures none Advance care planning discussed with:: patient Assessment & Plan Assessment Current Active Medications: Generic Name Dose Route Start Last Admin Trade Name Freq PRN Reason Stop Dose Admin Acetaminophen 650 mg 07/08/24 20:02 Acetaminophen 325 Mg Tablet PO 08/07/24 20:01 Q6H PRN Mild Pain 1-3 or Fever >100.3 Dextrose 25 ml 07/08/24 20:07 Dextrose 50%-Water Inj 50 Ml Syringe IV 08/07/24 20:06 Q15MIN PRN BG 50-70 responsive npo pt Dextrose 50 ml 07/08/24 20:07 Dextrose 50%-Water Inj 50 Ml Syringe IV 08/07/24 20:06 Q15MIN PRN BG <50 OR BG <70 & pt unresponsive Glucagon 1 mg 07/08/24 20:07 Glucagon Inj 1 Mg Vial IM Q15MIN PRN BG <70, and no IV access Insulin Human Lispro 0 unit 07/09/24 06:00 07/10/24 05:31 Insulin Lispro (Admelog) 1 Unit/0.01 Ml Unit SC 08/08/24 05:59 Not Given Q6HR HANNA Protocol Losartan Potassium 25 mg 07/08/24 20:30 07/09/24 08:56 Losartan Potassium 25 Mg Tablet PO 08/07/24 20:29 25 mg QDAY HANNA Administration Ondansetron HCl 4 mg 07/08/24 20:02 Ondansetron Inj 2 Mg/Ml Inj 2 Ml IV 08/07/24 20:01 Q6H PRN NAUSEA OR VOMITING Protocol Pantoprazole Sodium 40 mg 07/08/24 21:00 07/09/24 20:51 Pantoprazole Inj 40 Mg Vial IVP 08/07/24 20:59 40 mg Q12HR HANNA Administration Plan In summary: 78-year-old male with PMHx of HTN, T2DM, GERD, PUD, HLD, alcohol use disorder admitted for acute GI bleed. Admission Hgb 5.1, s/p 4 units RBCs, hemoglobin 7.9. Colonoscopy done showed multiple large polyps, ulcerative/obstructive mass at the hepatic flexure with oozing, among others. General surgery consulted. Patient will undergo EGD with Dr. Rojas noted today. Family deciding whether or not to proceed with general surgery here versus transfer to higher level of care. Oncology was also consulted. # Large, obstructive, ulcerated colonic mass # Acute GI Blood Loss: Upper versus lower GI bleed # Dyspnea # Pre-syncope # GERD # PUD History of melanic stool, history of PUD, GERD, alcohol use (quit 6 months ago) Dyspnea and presyncope without fall 2/2 blood loss Hgb 5.1 on admission, s/p 3 units, repeat Hgb 6.3 CT mass in cecum, thickening lower esophagus S/p 4 units RBC, Hgb 7.9 Colonoscopy showed >1 cm sessile polyp of transverse colon, large ulcerated/obstructive mass near hepatic flexure with oozing, few small diverticuli of the sigmoid and descending colon, and hemorrhoids, last resected and biopsy. GI recommended surgical consult. Will transfuse 1 unit RBC, 1 unit FFP for possible surgery tomorrow. ? EGD with Dr. Rojas ? General Surgery consulted ? Ordered CEA ? Continue PROTONIX 40 IV BID ? Avoid NSAIDs ? Transfuse if Hgb less than [address] Acharya, Dr. Duque, and Dr. Rojas's recommendations # T2DM GLUCOSE 86, pending A1c ? Holding home meds ? INSULIN sliding scale ? Daily GLUCOSE # Hypertension History of hypertension, on LISINOPRIL, complains of chronic cough BP 144/67 ? Holding home LISINOPRIL 5 mg 2/2 cough ? Continue LOSARTAN 25 mg daily ? Consider discharging patient on LOSARTAN 25 mg daily of LISINOPRIL # Incidental Pulmonary Nodules As seen on CT: Multiple noncalcified pulmonary nodules ? Recommended follow-up with PCP outpatient Health maintenance Diet: NPO GI prophylaxis: PROTONIX DVT prophylaxis: SCD CODE STATUS: Full code Disposition: pending colonoscopy Patient case was discussed with attending, Dr. Juan J MD, and senior residents Dr. Jay Hankins and Dr. Rendon. Mamie Chen, PGYI Senior Resident Attestation: The patient is a 78-year-old male with significant past medical history of hypertension, DM 2, GERD, PUD, hyperlipidemia, alcohol due disorder currently admitted for acute blood loss anemia. Patient reported doing well and denied any melenic stool. His vitals were stable. Physical examination was unremarkable. H&H was 7.9 and 26.2. The patient underwent colonoscopy yesterday evening, and was found to have greater than 1 cm sessile polyp at transverse colon, large ulcerated/obstructive mass near hepatic flexure with oozing, few small diverticuli of the sigmoid and descending colon, and hemorrhoids, last restricted and biopsy. We consulted Dr. Acharya for possible surgery. However, patient seems reluctant to proceed with surgery. Dr. Rojas might also proceed with EGD this afternoon. After EGD, we will proceed with surgery and removal of the colonic mass or discharge the patient to follow-up outpatient to proceed with surgery. I discussed with and supervised the internist physician involved in the care of this patient. I personally saw and examined the patient and discussed the assessment and plan with the entire medicine team, including my attending. I agree with the assessment and plan as documented above. Andrew Rendon MD PGY2 Internal Medicine
[2024-07-10 08:31] LABS: Carcinoembryonic Antigen 1.1 ng/mL (0.0-5.0)
[2024-07-10] MEDS: PANTOPRAZOLE INJ 40 MG VIAL IVP ×2 (08:36→20:53)
[2024-07-10] MEDS: LOSARTAN POTASSIUM 25 MG TABLET PO (08:36)
--- NOTE | 2024-07-10 09:40 | CHAP ---
Prayed with patient and family.
--- NOTE | 2024-07-10 11:31 | ESCONSULT_ITS ---
HPI Consult details Consult date: 07/10/24 Reason for consultation narrative: Obstructing and most likely malignant mass of ascending colon History of present illness: 78-year-old male with history of diabetes and hypertension was admitted with fatigue and anemia. Patient states that he is lost weight over the past 2 months and has had melanotic stools. He underwent colonoscopy by Dr. Rojas that revealed ulcerated and obstructing mass near hepatic flexure. Upon presentation patient was noted to have significant anemia requiring blood transfusion. According to patient's family he was hospitalized about 2 years ago and was treated for peptic ulcer disease. Review of Systems Constitutional Constitutional: Denies chills, Denies fever(s) and Reports weight loss Cardiovascular Cardiovascular: Denies chest pain and Denies dyspnea Respiratory Respiratory: Denies dyspnea Gastrointestinal Gastrointestinal: Denies abdominal pain, Reports melena, Denies nausea and Denies vomiting Genitourinary Genitourinary: Denies difficulty urinating Hematologic/Lymphatic Hematologic/Lymphatic: Denies easy bleeding and Denies easy bruising Past Medical History Surgical History OTHER SURGICAL HX: Injuries in the past Meds Home Medications and Allergies Home Medications ?Medication ?Instructions ?Recorded ?Confirmed ?Type No Known Home Medications 07/09/24 07/09/24 History Allergies Allergy/AdvReac Type Severity Reaction Status Date / Time No Known Allergies Allergy Verified 07/08/24 10:14 Exam Vital Signs Temp Pulse Resp BP Pulse Ox O2 Del Method O2 Flow Rate 97.1 F 72 20 144/67 H 96 Room Air 0 07/10/24 07:44 07/10/24 08:36 07/10/24 07:44 07/10/24 08:36 07/10/24 07:44 07/10/24 07:44 07/10/24 03:52 Constitutional Constitutional: no acute distress Routine Abdominal Exam Abdominal: Present soft, normoactive bowel sounds and hernia (Umbilical hernia that is nontender and reducible); Absent tenderness or distended Assessment & Plan Additional Assessment Additional comments: Ulcerated and obstructing mass near hepatic flexure most likely malignancy causing anemia Plan I had a lengthy discussion with patient and his family and explained to them that he will require exploratory laparotomy and right colectomy. They wish to discuss amongst themselves whether they want to proceed with a second opinion or a possible transfer to [facility]. He is awaiting upper endoscopy by Dr. Rojas today.
--- NOTE | 2024-07-10 12:45 | PC.SS ---
BUSINESS SUPERVISOR met with patient to complete initial assessment. Patient appeared alert and oriented. Patient confirmed demographic information. Patient lives at home with spouse, Patircia. Patient's daughter, Birdie Villatoro was identified as the patient's medical surrogate decision maker. Patient describes to be independent with ADL's. Denies DME use in the home. Patient's PCP is Dr. Lencho Aaron. Pharmacy of choice is [facility] in [place]. The discharge plan was discussed, and the patient would like to return home once medically cleared. Family to assist with transportation home. No needs identified at this time. Community resources provided. customer services supervisor to remain available to address any concerns. D/c plan: home Next of kin: daughterBirdie .
--- NOTE | 2024-07-10 13:09 | PD.ONCCONS ---
HPI Data of Consult Requesting Physician: Ashanti Arita MD Primary Care Provider: Lencho Aaron MD Consult Narrative Reason for consult: Suspected GI malignancy History of present illness: 78-year-old gentleman admitted with anemia weight loss and dark stools. Colonoscopy performed by Dr. Rojas 07/09/2024 revealed malignant appearing complete obstructing tumor at the hepatic flexure. Biopsy performed. Chest abdomen pelvis on 07/08/2024 revealed multiple noncalcified pulmonary nodules and thickening lower wall esophagus along with suspicious subtle mass in the cecum. Upper endoscopy being scheduled in AM. Patient referred for oncological consultation. cc:: cc: Ashanti Arita MD Past Medical History Past Medical History Comments PMH COMMENT: Hypertension diabetes mellitus type 2 peptic ulcer disease. Meds Home Medications and Allergies Home Medications ?Medication ?Instructions ?Recorded ?Confirmed ?Type No Known Home Medications 07/09/24 07/09/24 History Allergies Allergy/AdvReac Type Severity Reaction Status Date / Time No Known Allergies Allergy Verified 07/08/24 10:14 Exam Vital Signs Temp Pulse Resp BP Pulse Ox O2 Del Method O2 Flow Rate 97.1 F 67 20 153/78 H 96 Room Air 0 07/10/24 11:38 07/10/24 11:38 07/10/24 11:38 07/10/24 11:38 07/10/24 11:38 07/10/24 11:38 07/10/24 03:52 Narrative Exam Patient lying comfortably Results Labs 07/10/24 05:21 07/10/24 05:21 Labs: Short CBC 07/09/24 07/09/24 07/10/24 Range/Units 14:53 22:24 05:21 WBC 10.7 H (3.8-10.6) Thou/mm3 Hgb 7.0 L 6.5 L* 7.9 L D (13.5-16.0) g/dL Hct 23.6 L 22.0 L 26.2 L (41.0-53.0) % Plt Count 404 (140-440) Thou/mm3 BMP 07/10/24 05:21 Sodium 138 Potassium 3.8 Chloride 105 Carbon Dioxide 25.9 BUN 7 L Creatinine 0.8 Glucose 86 Calcium 8.8 Liver Function 07/10/24 Range/Units 05:21 Total Bilirubin 0.9 (0.3-1.2) mg/dL AST 10 (0-34) U/L ALT < 7 L (10-49) U/L Alkaline Phosphatase 56 (46-116) U/L Albumin 3.4 (3.4-4.8) gm/dL Assessment and Plan Additional Assessment & Plan Additional Plan: 1. Suspected malignancy, hepatic flexure. 2. Thickened lowered wall of the esophagus endoscopy pending 3. Dr Acharya general surgeon has spoken with family regarding need for surgery. 4. Will check pathology and follow as needed. Thank you for allowing me to evaluate this patient
--- NOTE | 2024-07-10 16:01 | PC.SS ---
Rounding note: patient has mass in colon. Pending family's decision for possible surgery.
--- NOTE | 2024-07-10 19:40 | SUR.PHASEI ---
1939 Patient arrived to recovery, report received from Aretha SALAS
--- NOTE | 2024-07-10 20:23 | SUR.PHASEI ---
2021 Report given to Will RN, patient meets discharge criteria from recovery, awake and alert, breathing unlabored, vital signs stable, denies pain, patient ate 3 jello and drank 2 apples juices and a cup of water, tolerating well, denies nausea 2022 Patient transported via gurney to room 376 without incident
[2024-07-10 23:52] LABS: Hematocrit 28.6 % (41.0-53.0); Hemoglobin 8.9 g/dL (13.5-16.0)
[2024-07-11] VITALS (19 sets, daily range): BP systolic 133–167; BP diastolic 63–78; PULSE 52–99; RESP 11–93; TEMP 36.2–36.6; O2SAT 94–100
[2024-07-11 05:38] LABS: Basophils # (Auto) 0.1 Thou/mm3 (0.0-0.2); Basophils % (Auto) 1 % (0-2.5); Eosinophils # (Auto) 0.4 Thou/mm3 (0.0-0.5); Eosinophils % (Auto) 5 % (0-10); Hematocrit 28.6 % (41.0-53.0); Immature Granulocytes % (Auto) 0 % (0-0); Immature Granulocytes Auto 0.03 Thou/mm3 (0.00-0.00); Lymphocytes # (Auto) 1.4 Thou/mm3 (1.0-4.8); Lymphocytes % (Auto) 16 % (10-50); Mean Corpuscular HGB Conc 30.4 g/dl (31.0-37.0); Mean Corpuscular Hemoglobin 23.1 pg (25.0-35.0); Mean Corpuscular Volume 76 fL (80-100); Monocytes # (Auto) 1.3 Thou/mm3 (0.0-0.8); Monocytes % (Auto) 15 % (0-12); Neutrophils # (Auto) 5.3 Thou/mm3 (1.8-7.7); Neutrophils % (Auto) 63 % (37-80); Nucleated Red Blood Cell % 0 /100 WBC (0); Platelet Count 377 Thou/mm3 (140-440); RDW Standard Deviation 56.5 fL (35.1-43.9); Red Blood Count 3.77 Miln/mm3 (4.50-5.90); White Blood Count 8.5 Thou/mm3 (3.8-10.6)
[2024-07-11 05:52] LABS: Hemoglobin 8.7 g/dL (13.5-16.0)
[2024-07-11 06:21] LABS: Alanine Aminotransferase < 7 U/L (10-49); Albumin, Serum 3.4 gm/dL (3.4-4.8); Albumin/Globulin Ratio 1.1 (1.2-2.2); Alkaline Phosphatase 54 U/L (46-116); Anion Gap 7 (7-16); Aspartate Amino Transferase < 10 U/L (0-34); BUN/Creatinine Ratio 9 Ratio (12-20); Blood Urea Nitrogen 7 mg/dL (9-23); Calcium 8.9 mg/dL (8.3-10.6); Calcium (Corrected) 9.4 mg/dL (8.5-10.1); Carbon Dioxide 25.4 mMol/L (20.0-31.0); Chloride 106 mMol/L (98-107); Creatinine (Component) 0.8 mg/dL (0.6-1.3); Estimated Creatinine Clearance 86.2 mL/min (>60); Globulin 3.2 gm/dL (2.3-3.5); Glucose 74 mg/dL (74-106); Osmolality,Calculated 272 (275-295); Potassium 3.8 mMol/L (3.4-5.1); Sodium 138 mMol/L (136-145); Total Protein 6.6 gm/dL (5.7-8.2); eGFR > 60 See Note
[2024-07-11] MEDS: LOSARTAN POTASSIUM 25 MG TABLET PO (08:35)
[2024-07-11] MEDS: PANTOPRAZOLE INJ 40 MG VIAL IVP ×2 (08:35→20:35)
--- NOTE | 2024-07-11 13:27 | ESPR_ITS ---
<Statement entered by Ashanti Arita MD - 07/18/24 14:19> Attending attestation: I reviewed above note and agree with findings and plans. I have also personally examined the patient with medicine team and went over assessment and plan with medical team including compensation intern and resident physician. Documentation for date of: 07/11/24 Subjective Subjective Interval history: No acute overnight events. Patient maintained n.p.o. for surgery later today. Denies fever, chills, headaches, chest pain, sob, cough, GI or urinary symptoms. Exam Vital Signs Temp Pulse Resp BP Pulse Ox O2 Del Method O2 Flow Rate 97.8 F 56 L 14 139/76 H 95 Room Air 3 07/11/24 11:40 07/11/24 12:00 07/11/24 11:40 07/11/24 11:40 07/11/24 11:40 07/11/24 11:40 07/10/24 19:30 Narrative Exam GENERAL: Normal appearing elderly male, NAD HEENT: NCAT.?LAURA. Oral mucosa is moist. Patent Nares NECK: Supple, nontender, no thyromegaly, no meningismus, no JVD, no step offs CHEST: Symmetrical, atraumatic, and with equal expansion, Nontender on palpation no deformity and no crepitus. CARDIOVASCULAR: RRR, no m/g/r LUNGS: CTAB, no w/r/r. Symmetrical chest rise. No intercostal subcostal retraction. ABDOMEN: Soft, flat, nontender. No guarding/rebound tenderness/masses. +BS EXTREMITIES: Nontender.? No edema/cyanosis.?Moves all 4 extremities well, with full ROM and good CSM. SKIN: Warm and dry, no jaundice/rashes. MSK: No lumbar or midline, no CVA, no paraspinal muscle spasm or tenderness. NEURO: ERWIN x4, CN II-XII grossly intact.?No focal neurologic deficits. PSYCHIATRIC: Normal mood and affect, cooperative, no SI or HI or hallucinations. Objective Labs 07/11/24 05:12 07/11/24 05:12 Labs: Laboratory Results - last 24 hr 07/08/24 07/10/24 07/11/24 10:57 23:25 05:12 WBC 8.5 RBC 3.77 L Hgb 8.9 L 8.7 L Hct 28.6 L 28.6 L MCV 76 L MCH 23.1 L MCHC 30.4 L RDW Std Deviation 56.5 H Plt Count 377 Neut % (Auto) 63 Lymph % (Auto) 16 [place] % (Auto) 15 H Eos % (Auto) 5 Baso % (Auto) 1 Neut # (Auto) 5.3 Lymph # (Auto) 1.4 [place] # (Auto) 1.3 H Eos # (Auto) 0.4 Baso # (Auto) 0.1 Immature Gran # (Auto) 0.03 H Absolute Nucleated RBC 0.00 Immature Gran % 0 Nucleated RBC % 0 Sodium 138 Potassium 3.8 Chloride 106 Carbon Dioxide 25.4 Anion Gap 7 BUN 7 L Creatinine 0.8 Estim Creat Clear Calc 86.2 eGFR > 60 BUN/Creatinine Ratio 9 L Glucose 74 Calculated Osmolality 272 L Calcium 8.9 Corrected Calcium 9.4 Total Bilirubin 1.0 AST < 10 ALT < 7 L Alkaline Phosphatase 54 Total Protein 6.6 Albumin 3.4 Globulin 3.2 Albumin/Globulin Ratio 1.1 L Blood Type O Positive Antibody Screen NEGATIVE Crossmatch See Detail Blood Bank Wristband ID Yes Blood Bank Comment FFP Ready 07/11/24 09:52 WBC RBC Hgb Hct MCV MCH MCHC RDW Std Deviation Plt Count Neut % (Auto) Lymph % (Auto) [place] % (Auto) Eos % (Auto) Baso % (Auto) Neut # (Auto) Lymph # (Auto) [place] # (Auto) Eos # (Auto) Baso # (Auto) Immature Gran # (Auto) Absolute Nucleated RBC Immature Gran % Nucleated RBC % Sodium Potassium Chloride Carbon Dioxide Anion Gap BUN Creatinine Estim Creat Clear Calc eGFR BUN/Creatinine Ratio Glucose Calculated Osmolality Calcium Corrected Calcium Total Bilirubin AST ALT Alkaline Phosphatase Total Protein Albumin Globulin Albumin/Globulin Ratio Blood Type O Positive Antibody Screen NEGATIVE Crossmatch See Detail Blood Bank Wristband ID Yes Blood Bank Comment Quality Measures Quality Measures none Advance care planning discussed with:: patient Assessment & Plan Assessment Current Active Medications: Generic Name Dose Route Start Last Admin Trade Name Freq PRN Reason Stop Dose Admin Acetaminophen 650 mg 07/08/24 20:02 Acetaminophen 325 Mg Tablet PO 08/07/24 20:01 Q6H PRN Mild Pain 1-3 or Fever >100.3 Dextrose 25 ml 07/08/24 20:07 Dextrose 50%-Water Inj 50 Ml Syringe IV 08/07/24 20:06 Q15MIN PRN BG 50-70 responsive npo pt Dextrose 50 ml 07/08/24 20:07 Dextrose 50%-Water Inj 50 Ml Syringe IV 08/07/24 20:06 Q15MIN PRN BG <50 OR BG <70 & pt unresponsive Glucagon 1 mg 07/08/24 20:07 Glucagon Inj 1 Mg Vial IM Q15MIN PRN BG <70, and no IV access Insulin Human Lispro 0 unit 07/09/24 06:00 07/11/24 12:05 Insulin Lispro (Admelog) 1 Unit/0.01 Ml Unit SC 08/08/24 05:59 Not Given Q6HR HANNA Protocol Losartan Potassium 25 mg 07/08/24 20:30 07/11/24 08:35 Losartan Potassium 25 Mg Tablet PO 08/07/24 20:29 25 mg QDAY HANNA Administration Ondansetron HCl 4 mg 07/08/24 20:02 Ondansetron Inj 2 Mg/Ml Inj 2 Ml IV 08/07/24 20:01 Q6H PRN NAUSEA OR VOMITING Protocol Pantoprazole Sodium 40 mg 07/08/24 21:00 07/11/24 08:35 Pantoprazole Inj 40 Mg Vial IVP 08/07/24 20:59 40 mg Q12HR HANNA Administration Plan In summary: 78-year-old male with PMHx of HTN, T2DM, GERD, PUD, HLD, alcohol use disorder admitted for acute GI bleed. Admission Hgb 5.1, s/p 4 units RBCs, hemoglobin 7.9. Colonoscopy done showed multiple large polyps, ulcerative/obstructive mass at the hepatic flexure with oozing, among others. General surgery consulted. He underwent EGD showing esophagitis, no mass or active bleed, biopsied. He will undergo surgery with Dr. Acharya today. Dr. Duque is on board. # Large, obstructive, ulcerated colonic mass # Acute GI Blood Loss: Upper versus lower GI bleed # Dyspnea # Pre-syncope # GERD # PUD History of melanic stool, history of PUD, GERD, alcohol use (quit 6 months ago) Dyspnea and presyncope without fall 2/2 blood loss Hgb 5.1 on admission, s/p 3 units, repeat Hgb 6.3 CT mass in cecum, thickening lower esophagus S/p 5 units RBC and 1 unit FFP, Hgb 0.7 Colonoscopy showed >1 cm sessile polyp of transverse colon, large ulcerated/obstructive mass near hepatic flexure with oozing, few small diverticuli of the sigmoid and descending colon, and hemorrhoids, last resected and biopsy. EGD showed reflux esophagitis, biopsied, esophageal ulcers, no bleed. Peripheral blood smear results showed microcytic anemia CEA normal ? Surgery with Dr Acharya today ? Continue PROTONIX 40 IV BID ? Avoid NSAIDs ? Transfuse if Hgb less than 7 ? Follow-up outpatient for iron deficiency anemia Appreciate Dr. Acharya, Dr. Duque, and Dr. Rojas's recommendations # T2DM GLUCOSE 93, pending A1c ? Holding home meds ? INSULIN sliding scale ? Daily GLUCOSE # Hypertension History of hypertension, on LISINOPRIL, complains of chronic cough BP 139/76 ? Holding home LISINOPRIL 5 mg 2/2 cough ? Continue LOSARTAN 25 mg daily ? Consider discharging patient on LOSARTAN 25 mg daily of LISINOPRIL # Incidental Pulmonary Nodules As seen on CT: Multiple noncalcified pulmonary nodules ? Recommended follow-up with PCP outpatient Health maintenance Diet: NPO GI prophylaxis: PROTONIX DVT prophylaxis: SCD CODE STATUS: Full code Disposition: pending colonoscopy Patient case was discussed with attending, Dr. Juan J MD, and senior residents Dr. Jay Hankins and Dr. Rendon. Mamie Chen, DO PGYI Senior Resident Attestation: ATTESTATION: I saw and examined the patient this morning, and I agree with current management stated by the resident. Will continue to monitor patient during their stay. Disclaimer: Despite multiple revisions, due to the dictation software being used, the document bellow may not be free of grammatical errors including phonetic/typographic errors. However, this does not deter from our commitment to providing health care in the patient's best interest in mind. Dr. Stan Hankins, PGY-3
--- NOTE | 2024-07-11 15:17 | SUR.PHASEI ---
pt received from OR in recovery bay 1. pt asleep but responds to voice, breathing unlabored on oxymask 8l. v/s stable. pt dressing to abd cdi. report received from Dr. Coleman and Laz SALAS.
--- NOTE | 2024-07-11 15:23 | PD.SURPROG ---
Documentation for date of: 07/11/24 Subjective Subjective Narrative: Patient is seen and examined. He is resting comfortably Exam Vital Signs Temp Pulse Resp BP Pulse Ox O2 Del Method O2 Flow Rate 97.8 F 56 L 14 139/76 H 95 Room Air 3 07/11/24 11:40 07/11/24 12:00 07/11/24 11:40 07/11/24 11:40 07/11/24 11:40 07/11/24 11:40 07/10/24 19:30 Constitutional Constitutional: no acute distress Assessment & Plan Assessment Additional comments: Obstructing mass of ascending colon most likely malignancy Plan Patient and family have decided to proceed with exploratory laparotomy and right colectomy. Patient's daughters, and son are at bedside and I had a lengthy discussion with them. The risks of the procedure that include but not limited to infection, bleeding, injury to bowel, liver, stomach, surround neurovascular structures, possible leak from the anastomosis site, abdominal sepsis and or abdominal abscess, need for further procedure and or operation, incisional hernia, pneumonia, blood clot, heart attack, stroke and discussed with them. Benefits and alternatives explained to them, all their questions answered, they agreed and consented to proceed with the operation.
--- NOTE | 2024-07-11 15:24 | PD.SUROPNT ---
Date of Procedure 07/11/24 Pre Op Diagnosis Obstructing tumor of ascending colon Post Op Diagnosis Obstructing tumor of ascending colon Procedure Exploratory laparotomy, right colectomy Findings A large and obstructing tumor of distal ascending colon near hepatic flexure with blue marking clearly visible. No evidence of omental or peritoneal nodules. Anterior surface of the liver was smooth without any lesions or nodules Procedure Description Patient brought into the operating room in supine position. After administration of general tracheal anesthesia, patient's abdomen prepped and draped in standard surgical manner. A laparotomy incision was made from mid epigastrium, to the right and around the umbilicus and chest up to below the umbilicus. Dissection deepened into soft tissue and anterior abdominal fascia was divided. Upon entering the abdominal cavity a wound protector and a Bookwalter retractor was placed for adequate exposure. There was no evidence of omental or peritoneal nodules or ascites. The small bowel was eviscerated, was run from ligament of Treitz up to ileocecal junction, no mass, tumors or any lymphadenopathy noted. Anterior surface of the liver was smooth without any obvious lesions or nodules. Patient was noted to have a near obstructing mass of ascending colon with blue marking clearly visible. The cecum and ascending colon was mobilized by dividing the white line of Toldt. Dissection continued cephalad and the hepatic flexure was mobilized. The lesser sac was then entered and the gastrocolic ligament was divided. Proximal and mid transverse colon was mobilized, care was taken to make sure duodenum was not injured. Once the right colon was completely mobilized, terminal ileum approximately 15 cm proximal to ileocecal junction was divided with VILLA stapling device. Mid aspect of transverse colon was also divided with VILLA stapling device. A [id number], functional end-to-end anastomosis was then created between terminal ileum and mid transverse colon. Anastomosis was performed with 2 layer handsewn anastomosis. Posterior layer was performed with interrupted sutures using 3-0 silk. The inner layer was performed with running 2-0 Vicryl and the anterior layer was reinforced with 3-0 silk sutures in Lembert fashion. Anastomosis was widely patent. Abdomen and pelvis copiously and thoroughly washed and irrigated, all the fluids were suctioned and the suction fluid returned clear. Hemostasis was adequate and satisfactory. Anterior abdominal fascia was closed with running 0 PDS as well as interrupted sutures with #1 Vicryl. The wound was washed and skin was closed with chelita. Appropriate sterile dressings and abdominal binder applied. Patient tolerated procedure well. He was extubated, breathing spontaneously and without difficulty and was transferred to postanesthesia care in stable condition. Instruments, needles and sponge counts were reported to be correct x 2. Anesthesia GETA Pathology / specimen Other (Right colon) Estimated Blood Loss 50 Condition Stable Disposition PACU Surgeon Janessa Acharya MD Surgical Staff Operation Date: 07/11/24 16:15 Case Staff Anesthesiologist: Gustavo Coleman RN First Assistant: Paz Delgado
[2024-07-11] MEDS: MORPHINE SULF INJ 10 MG/ML VIAL 3 MG IV (15:33)
[2024-07-11] MEDS: fentaNYL CIT INJ 50 mCg/ML AMP 2ML 25 MCG IV (15:48)
[2024-07-11] MEDS: MORPHINE SULF 1 MG/ML PCA SYRINGE 30 ML PCA (16:04)
[2024-07-11] MEDS: KCL 20 mEq/L in 1/2NS 20 MEQ/1,000 ML BAG 50 MEQ IV (16:06)
--- NOTE | 2024-07-11 16:35 | SUR.PHASEI ---
pt awake and alert, breathing unlabored on 2l nc. v/s stable. pt dressing to abd cdi. report called to Catrina Hodge. pt will be transferred to room at this time.
[2024-07-11] MEDS: CEFOXITIN 2 GM in SODIUM CHLORIDE 0.9% (P) 50 ML IV ×2 (17:18→23:30)
--- NOTE | 2024-07-11 17:54 | ESPR_ITS ---
Documentation for date of: 07/11/24 Subjective Subjective Interval history: Status post resection of the ascending colon obstructing tumor No evidence of any liver mets or peritoneal implants Exam Vital Signs Temp Pulse Resp BP Pulse Ox O2 Del Method O2 Flow Rate 97.7 F 57 L 16 154/68 H 98 Room Air 2 07/11/24 16:35 07/11/24 16:35 07/11/24 16:35 07/11/24 16:35 07/11/24 16:35 07/11/24 11:40 07/11/24 16:35 Objective Labs 07/12/24 05:02 07/12/24 05:02 Labs: Laboratory Results - last 24 hr 07/08/24 07/10/24 07/11/24 10:57 23:25 05:12 WBC 8.5 RBC 3.77 L Hgb 8.9 L 8.7 L Hct 28.6 L 28.6 L MCV 76 L MCH 23.1 L MCHC 30.4 L RDW Std Deviation 56.5 H Plt Count 377 Neut % (Auto) 63 Lymph % (Auto) 16 [place] % (Auto) 15 H Eos % (Auto) 5 Baso % (Auto) 1 Neut # (Auto) 5.3 Lymph # (Auto) 1.4 [place] # (Auto) 1.3 H Eos # (Auto) 0.4 Baso # (Auto) 0.1 Immature Gran # (Auto) 0.03 H Absolute Nucleated RBC 0.00 Immature Gran % 0 Nucleated RBC % 0 Sodium 138 Potassium 3.8 Chloride 106 Carbon Dioxide 25.4 Anion Gap 7 BUN 7 L Creatinine 0.8 Estim Creat Clear Calc 86.2 eGFR > 60 BUN/Creatinine Ratio 9 L Glucose 74 Calculated Osmolality 272 L Calcium 8.9 Corrected Calcium 9.4 Total Bilirubin 1.0 AST < 10 ALT < 7 L Alkaline Phosphatase 54 Total Protein 6.6 Albumin 3.4 Globulin 3.2 Albumin/Globulin Ratio 1.1 L Blood Type Antibody Screen Crossmatch See Detail Blood Bank Wristband ID 07/11/24 09:52 WBC RBC Hgb Hct MCV MCH MCHC RDW Std Deviation Plt Count Neut % (Auto) Lymph % (Auto) [place] % (Auto) Eos % (Auto) Baso % (Auto) Neut # (Auto) Lymph # (Auto) [place] # (Auto) Eos # (Auto) Baso # (Auto) Immature Gran # (Auto) Absolute Nucleated RBC Immature Gran % Nucleated RBC % Sodium Potassium Chloride Carbon Dioxide Anion Gap BUN Creatinine Estim Creat Clear Calc eGFR BUN/Creatinine Ratio Glucose Calculated Osmolality Calcium Corrected Calcium Total Bilirubin AST ALT Alkaline Phosphatase Total Protein Albumin Globulin Albumin/Globulin Ratio Blood Type O Positive Antibody Screen NEGATIVE Crossmatch See Detail Blood Bank Wristband ID Yes Impressions Impression: # Exploratory laparotomy 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 Suspected malignancy, hepatic flexure. 2. Thickened lowered wall of the esophagus endoscopy pending 3. Dr Acharya general surgeon has spoken with family regarding need for surgery. 4. Will check pathology and follow as needed. Thank you for allowing me to evaluate this patient Time Spent With Patient Time: Total time spent is greater than 50% in coordination of care (as documented) at patient's floor/unit and/or counseling patient:
[2024-07-11] MEDS: ACETAMINOPHEN IVPB 1,000 MG/100 ML VIAL 250 MG IV (19:28)
[2024-07-11] MEDS: ASCORBIC ACID 250 MG TABLET 500 MG PO (20:34)
[2024-07-11] MEDS: DOCUSATE SOD 100 MG CAPSULE PO (20:35)
[2024-07-12] VITALS (10 sets, daily range): BP systolic 117–160; BP diastolic 51–74; PULSE 54–74; RESP 12–96; TEMP 36–36.6; O2SAT 95–100; BMI 24.4
[2024-07-12] MEDS: ACETAMINOPHEN IVPB 1,000 MG/100 ML VIAL 250 MG IV ×3 (01:26→12:30)
[2024-07-12] MEDS: CEFOXITIN 2 GM in SODIUM CHLORIDE 0.9% (P) 50 ML IV (05:15)
[2024-07-12 05:43] LABS: Basophils % (Auto) 0 % (0-2.5); Eosinophils % (Auto) 0 % (0-10); Hematocrit 31.5 % (41.0-53.0); Hemoglobin 9.4 g/dL (13.5-16.0); Immature Granulocytes % (Auto) 0 % (0-0); Immature Granulocytes Auto 0.07 Thou/mm3 (0.00-0.00); Lymphocytes # (Auto) 0.8 Thou/mm3 (1.0-4.8); Lymphocytes % (Auto) 4 % (10-50); Mean Corpuscular HGB Conc 29.8 g/dl (31.0-37.0); Mean Corpuscular Volume 77 fL (80-100); Monocytes # (Auto) 1.1 Thou/mm3 (0.0-0.8); Monocytes % (Auto) 6 % (0-12); Neutrophils # (Auto) 16.1 Thou/mm3 (1.8-7.7); Neutrophils % (Auto) 89 % (37-80); Nucleated Red Blood Cell % 0 /100 WBC (0); Platelet Count 399 Thou/mm3 (140-440); Red Blood Count 4.08 Miln/mm3 (4.50-5.90); White Blood Count 18.1 Thou/mm3 (3.8-10.6)
[2024-07-12] MEDS: MORPHINE SULF 1 MG/ML PCA SYRINGE 30 ML PCA ×2 (05:48→19:22)
[2024-07-12 06:31] LABS: Alanine Aminotransferase < 7 U/L (10-49); Albumin, Serum 3.4 gm/dL (3.4-4.8); Albumin/Globulin Ratio 1.1 (1.2-2.2); Alkaline Phosphatase 50 U/L (46-116); Anion Gap 7 (7-16); Aspartate Amino Transferase 11 U/L (0-34); BUN/Creatinine Ratio 14 Ratio (12-20); Bilirubin,Total 1.1 mg/dL (0.3-1.2); Blood Urea Nitrogen 11 mg/dL (9-23); Calcium 8.9 mg/dL (8.3-10.6); Calcium (Corrected) 9.4 mg/dL (8.5-10.1); Carbon Dioxide 24.7 mMol/L (20.0-31.0); Chloride 105 mMol/L (98-107); Creatinine (Component) 0.8 mg/dL (0.6-1.3); Estimated Creatinine Clearance 86.2 mL/min (>60); Globulin 3.2 gm/dL (2.3-3.5); Glucose 138 mg/dL (74-106); Osmolality,Calculated 275 (275-295); Phosphorous 4.8 mg/dL (2.4-5.1); Potassium 3.9 mMol/L (3.4-5.1); Sodium 137 mMol/L (136-145); Total Protein 6.6 gm/dL (5.7-8.2); eGFR > 60 See Note
[2024-07-12] MEDS: DOCUSATE SOD 100 MG CAPSULE PO ×2 (08:10→21:32)
[2024-07-12] MEDS: PANTOPRAZOLE INJ 40 MG VIAL IVP ×2 (08:10→21:34)
[2024-07-12] MEDS: ZINC SULFATE 220 MG CAPSULE PO (08:10)
[2024-07-12] MEDS: ASCORBIC ACID 250 MG TABLET 500 MG PO ×2 (08:10→21:32)
[2024-07-12] MEDS: LOSARTAN POTASSIUM 25 MG TABLET PO (08:10)
--- NOTE | 2024-07-12 08:39 | ESPR_ITS ---
Documentation for date of: 07/12/24 Subjective Subjective Interval history: No overnight events. Patient continued n.p.o. per surgery recommendations. Has not passed stool or flatus. Denies fever, chills, headaches, chest pain, sob, cough, GI or urinary symptoms. Exam Vital Signs Temp Pulse Resp BP Pulse Ox O2 Del Method O2 Flow Rate 97.8 F 60 19 134/57 H 100 Room Air 1 07/12/24 07:41 07/12/24 08:10 07/12/24 07:41 07/12/24 08:10 07/12/24 07:41 07/12/24 07:41 07/12/24 07:41 Narrative Exam GENERAL: Normal appearing elderly male, NAD HEENT: NCAT.?LAURA. Oral mucosa is moist. Patent Nares NECK: Supple, nontender, no thyromegaly, no meningismus, no JVD, no step offs CHEST: Symmetrical, atraumatic, and with equal expansion, Nontender on palpation no deformity and no crepitus. CARDIOVASCULAR: RRR, no m/g/r LUNGS: CTAB, no w/r/r. Symmetrical chest rise. No intercostal subcostal retraction. ABDOMEN: Abdominal binder in place, clean and dry, tenderness to deep palpation. Slowed BS EXTREMITIES: Nontender.? No edema/cyanosis.?Moves all 4 extremities well, with full ROM and good CSM. SKIN: Warm and dry, no jaundice/rashes. MSK: No lumbar or midline, no CVA, no paraspinal muscle spasm or tenderness. NEURO: ERWIN x4, CN II-XII grossly intact.?No focal neurologic deficits. PSYCHIATRIC: Normal mood and affect, cooperative, no SI or HI or hallucinations. Objective Labs 07/13/24 05:04 07/13/24 05:04 Labs: Laboratory Results - last 24 hr 07/11/24 07/12/24 09:52 05:02 WBC 18.1 H D RBC 4.08 L Hgb 9.4 L Hct 31.5 L MCV 77 L MCH 23.0 L MCHC 29.8 L RDW Std Deviation 59.0 H Plt Count 399 Neut % (Auto) 89 H Lymph % (Auto) 4 L [place] % (Auto) 6 Eos % (Auto) 0 Baso % (Auto) 0 Neut # (Auto) 16.1 H Lymph # (Auto) 0.8 L [place] # (Auto) 1.1 H Eos # (Auto) 0.0 Baso # (Auto) 0.0 Immature Gran # (Auto) 0.07 H Absolute Nucleated RBC 0.00 Immature Gran % 0 Nucleated RBC % 0 Sodium 137 Potassium 3.9 Chloride 105 Carbon Dioxide 24.7 Anion Gap 7 BUN 11 Creatinine 0.8 Estim Creat Clear Calc 86.2 eGFR > 60 BUN/Creatinine Ratio 14 Glucose 138 H D Calculated Osmolality 275 Calcium 8.9 Corrected Calcium 9.4 Phosphorus 4.8 Magnesium 2.0 Total Bilirubin 1.1 AST 11 ALT < 7 L Alkaline Phosphatase 50 Total Protein 6.6 Albumin 3.4 Globulin 3.2 Albumin/Globulin Ratio 1.1 L Blood Type O Positive Antibody Screen NEGATIVE Crossmatch See Detail Blood Bank Wristband ID Yes Quality Measures Quality Measures none Advance care planning discussed with:: patient Assessment & Plan Assessment Current Active Medications: Generic Name Dose Route Start Last Admin Trade Name Freq PRN Reason Stop Dose Admin Acetaminophen 650 mg 07/08/24 20:02 Acetaminophen 325 Mg Tablet PO 08/07/24 20:01 Q6H PRN Mild Pain 1-3 or Fever >100.3 Ascorbic Acid 500 mg 07/11/24 21:00 07/12/24 08:10 Ascorbic Acid 250 Mg Tablet PO 08/10/24 20:59 500 mg BID HANNA Administration Dextrose 25 ml 07/08/24 20:07 Dextrose 50%-Water Inj 50 Ml Syringe IV 08/07/24 20:06 Q15MIN PRN BG 50-70 responsive npo pt Dextrose 50 ml 07/08/24 20:07 Dextrose 50%-Water Inj 50 Ml Syringe IV 08/07/24 20:06 Q15MIN PRN BG <50 OR BG <70 & pt unresponsive Docusate Sodium 100 mg 07/11/24 21:00 07/12/24 08:10 Docusate Sod 100 Mg Capsule PO 08/10/24 20:59 100 mg BID HANNA Administration Protocol Glucagon 1 mg 07/08/24 20:07 Glucagon Inj 1 Mg Vial IM Q15MIN PRN BG <70, and no IV access Potassium Chloride/Sodium Chloride 20 meq in 1,000 mls @ 50 mls/hr 07/11/24 16:01 07/11/24 16:06 Kcl 20 Meq/L In 1/2ns IV 07/12/24 12:00 50 mls/hr .Q20H ONE Administration Cefoxitin Sodium 2 gm/ Sodium 50 mls @ 100 mls/hr 07/11/24 18:00 07/12/24 05:15 Chloride IV 07/12/24 17:00 100 mls/hr Q6HR HANNA Administration Acetaminophen 1,000 mg in 100 mls @ 250 mls/hr 07/12/24 01:30 07/12/24 08:09 Ofirmev Inj IV 07/12/24 13:53 250 mls/hr Q6H HANNA Administration Insulin Human Lispro 0 unit 07/09/24 06:00 07/12/24 06:01 Insulin Lispro (Admelog) 1 Unit/0.01 Ml Unit SC 08/08/24 05:59 Not Given Q6HR HANNA Protocol Losartan Potassium 25 mg 07/08/24 20:30 07/12/24 08:10 Losartan Potassium 25 Mg Tablet PO 08/07/24 20:29 25 mg QDAY HANNA Administration Morphine Sulfate 0 mg 07/11/24 15:43 07/12/24 05:48 Morphine Sulf 1 Mg/Ml District Administrative Assistant Syringe 30 Ml BIZTALK ARCHITECT 07/16/24 15:42 30 mg PER ORDER HANNA Administration Protocol Ondansetron HCl 4 mg 07/08/24 20:02 Ondansetron Inj 2 Mg/Ml Inj 2 Ml IV 08/07/24 20:01 Q6H PRN NAUSEA OR VOMITING Protocol Pantoprazole Sodium 40 mg 07/08/24 21:00 07/12/24 08:10 Pantoprazole Inj 40 Mg Vial IVP 08/07/24 20:59 40 mg Q12HR HANNA Administration Zinc Sulfate 220 mg 07/12/24 09:00 07/12/24 08:10 Zinc Sulfate 220 Mg Capsule PO 08/11/24 08:59 220 mg QDAY HANNA Administration Plan In summary: 78-year-old male with PMHx of HTN, T2DM, GERD, PUD, HLD, alcohol use disorder admitted for acute GI bleed. Admission Hgb 5.1, s/p 4 units RBCs, hemoglobin 7.9. Colonoscopy done showed multiple large polyps, ulcerative/obstructive mass at the hepatic flexure with oozing, among others. EGD showing esophagitis, no mass or active bleed, biopsied. He under went colonic mass resection with general surgery. Results from colonoscopy suggested no carcinoma. Dr. Duque following. # Large, obstructive, ulcerated colonic mass # Acute GI Blood Loss: Upper versus lower GI bleed # Dyspnea # Pre-syncope # GERD # PUD History of melanic stool, history of PUD, GERD, alcohol use (quit 6 months ago) Dyspnea and presyncope without fall 2/2 blood loss Hgb 5.1 on admission, s/p 3 units, repeat Hgb 6.3 CT mass in cecum, thickening lower esophagus S/p 5 units RBC and 1 unit FFP, Hgb 0.7 Colonoscopy showed >1 cm sessile polyp of transverse colon, large ulcerated/obstructive mass near hepatic flexure with oozing, few small diverticuli of the sigmoid and descending colon, and hemorrhoids, last resected and biopsy. EGD showed reflux esophagitis, biopsied, esophageal ulcers, no bleed. Peripheral blood smear results showed microcytic anemia CEA normal Underwent EXLAP with findings of large, obstructing tumor of distal ascending colon near hepatic flexure with blue marking clearly visible. No evidence of omental or peritoneal nodules. Anterior surface of the liver was smooth without any lesions or nodules. 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 ? Continue n.p.o. per surgery recommendations ? Continue PROTONIX 40 IV BID ? BIZTALK ARCHITECT pump for pain, managed by general surgery ? Avoid NSAIDs ? Transfuse if Hgb less than 7 ? Follow-up outpatient for iron deficiency anemia Appreciate Dr. Acharya, Dr. Duque, and Dr. Rojas's recommendations # T2DM GLUCOSE 93, pending A1c ? Holding home meds ? INSULIN sliding scale ? Daily GLUCOSE # Hypertension History of hypertension, on LISINOPRIL, complains of chronic cough BP 139/76 ? Holding home LISINOPRIL 5 mg 2/2 cough ? Continue LOSARTAN 25 mg daily ? Consider discharging patient on LOSARTAN 25 mg daily of LISINOPRIL # Incidental Pulmonary Nodules As seen on CT: Multiple noncalcified pulmonary nodules ? Recommended follow-up with PCP outpatient Health maintenance Diet: NPO GI prophylaxis: PROTONIX DVT prophylaxis: SCD CODE STATUS: Full code Disposition: pending colonoscopy Patient case was discussed with attending, Dr. Ayesha DO, and senior residents Dr. Jay Hankins and Dr. Rendon. Mamie Chen DO PGYI Senior Resident Attestation: The patient is s/p day 1 of colonic mass. He reported pain being when managed. He denied any fever or chills, nausea. He admitted nausea and was given x 1 IV Zofran 4 mg. We will continue with as needed IV Zofran. General surgeon, Dr. Acharya on board. We will continue to manage pain and later feed the patient. I discussed with and supervised the international sourcing manager physician involved in the care of this patient. I personally saw and examined the patient and discussed the assessment and plan with the entire medicine team, including my attending. I agree with the assessment and plan as documented above. Andrew Rendon MD PGY2 Internal Medicine Attending Provider Attestation/Addendum I, Doris Hodge DO, attest that I was physically present for the boswell portions of the service and evaluated the patient with the resident and I reviewed and discussed the case with the resident and agree with the resident's findings and plans of care as documented above Patient seen and evaluated this AM. Patient states pain is tolerable, but he is anxious to get up and walk. Patient also states that he is weak because he hasn't eaten. Explained to patient that we are waiting for return of bowel function after bowel resection. Will have PT walk with patient. Encouraged patient to use IS. Will f/u with surgeon recs. Patient remains on BIZTALK ARCHITECT pump for pain control. Son and are also at bedside. They are aware of his pathology results
[2024-07-12] MEDS: ONDANSETRON INJ 2 MG/ML INJ 2 ML 4 MG IV (11:42)
--- NOTE | 2024-07-12 11:43 | PD.SURPROG ---
Documentation for date of: 07/12/24 Subjective Subjective Narrative: Patient is seen and examined. He has incisional pain, controlled with OFFICE ANALYST. He denies nausea or vomiting. He has not passed flatus or bowel movement yet Exam Vital Signs Temp Pulse Resp BP Pulse Ox O2 Del Method O2 Flow Rate 97.8 F 60 19 134/57 H 100 Room Air 1 07/12/24 07:41 07/12/24 08:10 07/12/24 07:41 07/12/24 08:10 07/12/24 07:41 07/12/24 07:41 07/12/24 07:41 Constitutional Constitutional: no acute distress Routine Abdominal Exam Comments: Abdomen is soft and mildly distended. He does not have any bowel sounds at this time. Incision with dressings clean, dry and intact Assessment & Plan Assessment Additional comments: Postop day #1 status post exploratory laparotomy with right colectomy Plan DC Paz catheter. Will DC IV antibiotics later today. Continue ice chips for today. Patient is advised to increase ambulation and use incentive spirometer Procedures Procedures Exploratory laparotomy, right colectomy
[2024-07-12] MEDS: CEFOXITIN 2 GM in Sterile Water 10 ML IVP (11:49)
--- NOTE | 2024-07-12 12:00 | CHAP ---
Patient was visited by the Spiritual Care Volunteer who prayed with them. (Volunteer was in the hospital from 10:13-12:00).
[2024-07-12] MEDS: KCL 20 mEq/L in 1/2NS 20 MEQ/1,000 ML BAG 50 MEQ IV (16:55)
--- NOTE | 2024-07-12 20:50 | ESPR_ITS ---
Documentation for date of: 07/12/24 Subjective Subjective Interval history: Status post right colectomy No passage of flatus or bowel movement Exam Vital Signs Temp Pulse Resp BP Pulse Ox O2 Del Method O2 Flow Rate 97.8 F 73 18 128/61 95 Room Air 1 07/12/24 20:00 07/12/24 20:00 07/12/24 20:00 07/12/24 20:00 07/12/24 20:00 07/12/24 20:00 07/12/24 07:41 Objective Labs 07/12/24 05:02 07/12/24 05:02 Labs: Laboratory Results - last 24 hr 07/12/24 05:02 WBC 18.1 H D RBC 4.08 L Hgb 9.4 L Hct 31.5 L MCV 77 L MCH 23.0 L MCHC 29.8 L RDW Std Deviation 59.0 H Plt Count 399 Neut % (Auto) 89 H Lymph % (Auto) 4 L [place] % (Auto) 6 Eos % (Auto) 0 Baso % (Auto) 0 Neut # (Auto) 16.1 H Lymph # (Auto) 0.8 L [place] # (Auto) 1.1 H Eos # (Auto) 0.0 Baso # (Auto) 0.0 Immature Gran # (Auto) 0.07 H Absolute Nucleated RBC 0.00 Immature Gran % 0 Nucleated RBC % 0 Sodium 137 Potassium 3.9 Chloride 105 Carbon Dioxide 24.7 Anion Gap 7 BUN 11 Creatinine 0.8 Estim Creat Clear Calc 86.2 eGFR > 60 BUN/Creatinine Ratio 14 Glucose 138 H D Calculated Osmolality 275 Calcium 8.9 Corrected Calcium 9.4 Phosphorus 4.8 Magnesium 2.0 Total Bilirubin 1.1 AST 11 ALT < 7 L Alkaline Phosphatase 50 Total Protein 6.6 Albumin 3.4 Globulin 3.2 Albumin/Globulin Ratio 1.1 L Impressions Impression: # Status post right colectomy for obstructing ascending colon carcinoma near the hepatic flexure No evidence of any liver or peritoneal implants Continue postoperative care Assessment & Plan A&P Narrative 1. Suspected malignancy, hepatic flexure. 2. Thickened lowered wall of the esophagus endoscopy pending 3. Dr Acharya general surgeon has spoken with family regarding need for surgery. 4. Will check pathology and follow as needed. Thank you for allowing me to evaluate this patient Time Spent With Patient Time: Total time spent is greater than 50% in coordination of care (as documented) at patient's floor/unit and/or counseling patient:
[2024-07-13] VITALS (9 sets, daily range): BP systolic 131–150; BP diastolic 63–73; PULSE 61–67; RESP 11–95; TEMP 26.4–36.5; O2SAT 93–95
[2024-07-13 06:02] LABS: Basophils # (Auto) 0.1 Thou/mm3 (0.0-0.2); Basophils % (Auto) 1 % (0-2.5); Eosinophils # (Auto) 0.2 Thou/mm3 (0.0-0.5); Eosinophils % (Auto) 2 % (0-10); Hematocrit 29.7 % (41.0-53.0); Immature Granulocytes % (Auto) 0 % (0-0); Immature Granulocytes Auto 0.03 Thou/mm3 (0.00-0.00); Lymphocytes # (Auto) 1.1 Thou/mm3 (1.0-4.8); Lymphocytes % (Auto) 12 % (10-50); Mean Corpuscular HGB Conc 29.6 g/dl (31.0-37.0); Mean Corpuscular Hemoglobin 23.1 pg (25.0-35.0); Mean Corpuscular Volume 78 fL (80-100); Monocytes # (Auto) 0.9 Thou/mm3 (0.0-0.8); Monocytes % (Auto) 9 % (0-12); Neutrophils # (Auto) 7.5 Thou/mm3 (1.8-7.7); Neutrophils % (Auto) 77 % (37-80); Nucleated Red Blood Cell % 0 /100 WBC (0); Platelet Count 392 Thou/mm3 (140-440); RDW Standard Deviation 61.7 fL (35.1-43.9); Red Blood Count 3.81 Miln/mm3 (4.50-5.90); White Blood Count 9.7 Thou/mm3 (3.8-10.6)
[2024-07-13 06:11] LABS: Hemoglobin 8.8 g/dL (13.5-16.0)
[2024-07-13 06:31] LABS: Alanine Aminotransferase < 7 U/L (10-49); Albumin, Serum 3.6 gm/dL (3.4-4.8); Albumin/Globulin Ratio 1.2 (1.2-2.2); Alkaline Phosphatase 48 U/L (46-116); Anion Gap 6 (7-16); Aspartate Amino Transferase 10 U/L (0-34); BUN/Creatinine Ratio 16 Ratio (12-20); Bilirubin,Total 0.7 mg/dL (0.3-1.2); Blood Urea Nitrogen 13 mg/dL (9-23); Calcium (Corrected) 9.3 mg/dL (8.5-10.1); Carbon Dioxide 25.8 mMol/L (20.0-31.0); Chloride 105 mMol/L (98-107); Creatinine (Component) 0.8 mg/dL (0.6-1.3); Estimated Creatinine Clearance 86.2 mL/min (>60); Glucose 76 mg/dL (74-106); Magnesium 2.1 mg/dL (1.6-2.6); Osmolality,Calculated 272 (275-295); Phosphorous 2.7 mg/dL (2.4-5.1); Potassium 3.8 mMol/L (3.4-5.1); Sodium 137 mMol/L (136-145); Total Protein 6.6 gm/dL (5.7-8.2); eGFR > 60 See Note
--- NOTE | 2024-07-13 07:43 | PD.RESPRO ---
Documentation for date of: 07/13/24 Subjective Subjective Interval history: No acute overnight events. Reports urinary retention after he was removed, was able to urinate after Paz was resumed. Has not passed gas or stool. Working with physical therapy. Denies fever, chills, headaches, chest pain, sob, cough, GI or urinary symptoms. Exam Vital Signs Temp Pulse Resp BP Pulse Ox O2 Del Method O2 Flow Rate 97.2 F 61 17 140/63 H 93 L Room Air 1 07/13/24 04:00 07/13/24 04:00 07/13/24 04:00 07/13/24 04:00 07/13/24 04:00 07/13/24 04:00 07/12/24 07:41 Narrative Exam GENERAL: Normal appearing elderly male, NAD HEENT: NCAT.?LAURA. Oral mucosa is moist. Patent Nares NECK: Supple, nontender, no thyromegaly, no meningismus, no JVD, no step offs CHEST: Symmetrical, atraumatic, and with equal expansion, Nontender on palpation no deformity and no crepitus. CARDIOVASCULAR: RRR, no m/g/r LUNGS: CTAB, no w/r/r. Symmetrical chest rise. No intercostal subcostal retraction. ABDOMEN: Abdominal binder in place, clean and dry, tenderness to deep palpation. Slowed BS EXTREMITIES: Nontender.? No edema/cyanosis.?Moves all 4 extremities well, with full ROM and good CSM. SKIN: Warm and dry, no jaundice/rashes. MSK: No lumbar or midline, no CVA, no paraspinal muscle spasm or tenderness. NEURO: ERWIN x4, CN II-XII grossly intact.?No focal neurologic deficits. PSYCHIATRIC: Normal mood and affect, cooperative, no SI or HI or hallucinations. Objective Labs 07/14/24 04:55 07/14/24 04:55 Labs: Laboratory Results - last 24 hr 07/13/24 05:04 WBC 9.7 D RBC 3.81 L Hgb 8.8 L Hct 29.7 L MCV 78 L MCH 23.1 L MCHC 29.6 L RDW Std Deviation 61.7 H Plt Count 392 Neut % (Auto) 77 Lymph % (Auto) 12 [place] % (Auto) 9 Eos % (Auto) 2 Baso % (Auto) 1 Neut # (Auto) 7.5 Lymph # (Auto) 1.1 [place] # (Auto) 0.9 H Eos # (Auto) 0.2 Baso # (Auto) 0.1 Immature Gran # (Auto) 0.03 H Absolute Nucleated RBC 0.00 Immature Gran % 0 Nucleated RBC % 0 Sodium 137 Potassium 3.8 Chloride 105 Carbon Dioxide 25.8 Anion Gap 6 L BUN 13 Creatinine 0.8 Estim Creat Clear Calc 86.2 eGFR > 60 BUN/Creatinine Ratio 16 Glucose 76 D Calculated Osmolality 272 L Calcium 9.0 Corrected Calcium 9.3 Phosphorus 2.7 Magnesium 2.1 Total Bilirubin 0.7 AST 10 ALT < 7 L Alkaline Phosphatase 48 Total Protein 6.6 Albumin 3.6 Globulin 3.0 Albumin/Globulin Ratio 1.2 Quality Measures Quality Measures none Advance care planning discussed with:: patient Assessment & Plan Assessment Current Active Medications: Generic Name Dose Route Start Last Admin Trade Name Freq PRN Reason Stop Dose Admin Acetaminophen 650 mg 07/08/24 20:02 Acetaminophen 325 Mg Tablet PO 08/07/24 20:01 Q6H PRN Mild Pain 1-3 or Fever >100.3 Ascorbic Acid 500 mg 07/11/24 21:00 07/12/24 21:32 Ascorbic Acid 250 Mg Tablet PO 08/10/24 20:59 500 mg BID HANNA Administration Dextrose 25 ml 07/08/24 20:07 Dextrose 50%-Water Inj 50 Ml Syringe IV 08/07/24 20:06 Q15MIN PRN BG 50-70 responsive npo pt Dextrose 50 ml 07/08/24 20:07 Dextrose 50%-Water Inj 50 Ml Syringe IV 08/07/24 20:06 Q15MIN PRN BG <50 OR BG <70 & pt unresponsive Docusate Sodium 100 mg 07/11/24 21:00 07/12/24 21:32 Docusate Sod 100 Mg Capsule PO 08/10/24 20:59 100 mg BID HANNA Administration Protocol Glucagon 1 mg 07/08/24 20:07 Glucagon Inj 1 Mg Vial IM Q15MIN PRN BG <70, and no IV access Potassium Chloride/Sodium Chloride 20 meq in 1,000 mls @ 50 mls/hr 07/12/24 16:45 07/12/24 16:55 Kcl 20 Meq/L In 1/2ns IV 08/11/24 16:44 50 mls/hr .Q20H HANNA Administration Insulin Human Lispro 0 unit 07/09/24 06:00 07/13/24 06:00 Insulin Lispro (Admelog) 1 Unit/0.01 Ml Unit SC 08/08/24 05:59 Not Given Q6HR HANNA Protocol Losartan Potassium 25 mg 07/08/24 20:30 07/12/24 08:10 Losartan Potassium 25 Mg Tablet PO 08/07/24 20:29 25 mg QDAY HANNA Administration Morphine Sulfate 0 mg 07/11/24 15:43 07/12/24 19:22 Morphine Sulf 1 Mg/Ml Electric Blanket Wirer Syringe 30 Ml CULINARY SPECIALIST 07/16/24 15:42 30 mg PER ORDER HANNA Administration Protocol Ondansetron HCl 4 mg 07/08/24 20:02 Ondansetron Inj 2 Mg/Ml Inj 2 Ml IV 08/07/24 20:01 Q6H PRN NAUSEA OR VOMITING Protocol Pantoprazole Sodium 40 mg 07/08/24 21:00 07/12/24 21:34 Pantoprazole Inj 40 Mg Vial IVP 08/07/24 20:59 40 mg Q12HR HANNA Administration Zinc Sulfate 220 mg 07/12/24 09:00 07/12/24 08:10 Zinc Sulfate 220 Mg Capsule PO 08/11/24 08:59 220 mg QDAY HANNA Administration Plan In summary: 78-year-old male with PMHx of HTN, T2DM, GERD, PUD, HLD, alcohol use disorder admitted for acute GI bleed. Admission Hgb 5.1, s/p 4 units RBCs, hemoglobin 7.9. Colonoscopy done showed multiple large polyps, ulcerative/obstructive mass at the hepatic flexure with oozing, among others. EGD showing esophagitis, no mass or active bleed, biopsied. He under went colonic mass resection with general surgery. Results from colonoscopy suggested no carcinoma. Dr. Duque following. # Large, obstructive, ulcerated colonic mass # Acute GI Blood Loss: Upper versus lower GI bleed # Dyspnea # Pre-syncope # GERD # PUD History of melanic stool, history of PUD, GERD, alcohol use (quit 6 months ago) Dyspnea and presyncope without fall 2/2 blood loss Hgb 5.1 on admission, s/p 3 units, repeat Hgb 6.3 CT mass in cecum, thickening lower esophagus S/p 5 units RBC and 1 unit FFP, Hgb 0.7 Colonoscopy showed >1 cm sessile polyp of transverse colon, large ulcerated/obstructive mass near hepatic flexure with oozing, few small diverticuli of the sigmoid and descending colon, and hemorrhoids, last resected and biopsy. EGD showed reflux esophagitis, biopsied, esophageal ulcers, no bleed. Peripheral blood smear results showed microcytic anemia CEA normal Underwent EXLAP with findings of large, obstructing tumor of distal ascending colon near hepatic flexure with blue marking clearly visible. No evidence of omental or peritoneal nodules. Anterior surface of the liver was smooth without any lesions or nodules. 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 ? Continue n.p.o. per surgery recommendations ? Continue PROTONIX 40 IV BID ? CULINARY SPECIALIST pump for pain, managed by general surgery ? Avoid NSAIDs ? Transfuse if Hgb less than 7 ? Follow-up outpatient for iron deficiency anemia # H. pylori Esophageal biopsy positive for H. pylori. We started triple therapy as below. ? Continue PROTONIX 40 mg BID (07/13 to 07/27) ? Continue AMOXICILLIN 1000 mg BID (07/13 to 07/27) ? Continue CLARITHROMYCIN 500 mg BID (07/13 to 07/27) ? Will need follow-up with GI upon discharge # T2DM 1C5.4 this visit, GLUCOSE controled ? Holding home meds ? INSULIN sliding scale ? Daily GLUCOSE # Hypertension History of hypertension, on LISINOPRIL, complains of chronic cough BP 150/73 Increased LOSARTAN dose as below ? Holding home LISINOPRIL 5 mg 2/2 cough ? Continue LOSARTAN 50 mg daily ? Consider discharging patient on LOSARTAN 25 mg daily of LISINOPRIL # Incidental Pulmonary Nodules As seen on CT: Multiple noncalcified pulmonary nodules ? Recommended follow-up with PCP outpatient Health maintenance Diet: NPO GI prophylaxis: PROTONIX DVT prophylaxis: SCD CODE STATUS: Full code Disposition: pending colonoscopy Patient case was discussed with attending, Dr. Ayesha DO, and senior resident Dr. Amaya. Mamie Chen DO PGYI I discussed with and supervised the general internal medicine physician physician who took care of this patient. I personally saw and examined the patient and discussed the assessment and plan with the entire medicine team, including my attending Dr. Ayesha HAJI. I agree with the assessment and plan as documented above. Patient interviewed and examined at bedside this a.m. no acute overnight events reported. Patient continues to work with PT. Patient did report some urinary retention which resolved after Paz was exchanged. Patient was noted to be positive for H. pylori for which triple therapy with amoxicillin, clarithromycin and Protonix was initiated. Víctor Amaya M.D. Internal Medicine PGY-3 Attending Provider Attestation/Addendum IDoris DO, attest that I was physically present for the boswell portions of the service and evaluated the patient with the resident and I reviewed and discussed the case with the resident and agree with the resident's findings and plans of care as documented above Patient seen and evaluated this AM. No acute events overnight. Patient remains NPO, but was able to ambulate without issue with PT. Pain improved. Conitnue with postop care as per surgeon. Patient found to have h.pylori from egd bx. Will order triple therapy for 14 days. Patient and are aware of biopsy findings. Patient has not had a BM or passed flatus. Encouraged use of IS.
--- NOTE | 2024-07-13 08:15 | PC.NURSE ---
Patient on Morphine MECHANICAL DEVELOPMENT ENGINEER pump, VTBI is 8 mL, 22 mL out of the 30 mL have been infused.
[2024-07-13] MEDS: ZINC SULFATE 220 MG CAPSULE PO (08:24)
[2024-07-13] MEDS: ASCORBIC ACID 250 MG TABLET 500 MG PO ×2 (08:24→20:51)
[2024-07-13] MEDS: DOCUSATE SOD 100 MG CAPSULE PO ×2 (08:24→20:51)
[2024-07-13] MEDS: LOSARTAN POTASSIUM 25 MG TABLET PO (08:25)
[2024-07-13] MEDS: PANTOPRAZOLE INJ 40 MG VIAL IVP (08:25)
[2024-07-13] MEDS: MORPHINE SULF 1 MG/ML PCA SYRINGE 30 ML PCA (12:34)
[2024-07-13] MEDS: KCL 20 mEq/L in 1/2NS 20 MEQ/1,000 ML BAG 50 MEQ IV (13:52)
--- NOTE | 2024-07-13 14:07 | PD.SURPROG ---
Documentation for date of: 07/13/24 Subjective Subjective Narrative: Patient is seen and examined. His pain is controlled with INTERFACE ENGINEER. He denies nausea or vomiting. She has not passed flatus or bowel movement yet Exam Vital Signs Temp Pulse Resp BP Pulse Ox O2 Del Method O2 Flow Rate 79.6 F L 65 17 147/66 H 93 L Room Air 1 07/13/24 12:00 07/13/24 12:00 07/13/24 12:00 07/13/24 12:00 07/13/24 12:00 07/13/24 12:00 07/13/24 12:00 Constitutional Constitutional: no acute distress Routine Abdominal Exam Comments: Abdomen is soft with hypoactive bowel sounds. Mildly distended. Incision with dressings clean, dry and intact Assessment & Plan Assessment Additional comments: Postop day #2 status post exploratory laparotomy with right colectomy. Biopsy results from EGD revealed H. pylori Plan He has been treated for H. pylori. Will start clear liquids. DC IV fluids Procedures Procedures Exploratory laparotomy, right colectomy
--- NOTE | 2024-07-13 19:26 | PD.IMPROG ---
Documentation for date of: 07/13/24 Subjective Subjective Interval history: No passage of flatus Doing well on liquid diet Exam Vital Signs Temp Pulse Resp BP Pulse Ox O2 Del Method O2 Flow Rate 97.2 F 63 17 147/66 H 94 L Room Air 1 07/13/24 16:00 07/13/24 16:00 07/13/24 16:00 07/13/24 16:00 07/13/24 16:00 07/13/24 16:00 07/13/24 12:00 Objective Labs 07/13/24 05:04 07/13/24 05:04 Labs: Laboratory Results - last 24 hr 07/13/24 05:04 WBC 9.7 D RBC 3.81 L Hgb 8.8 L Hct 29.7 L MCV 78 L MCH 23.1 L MCHC 29.6 L RDW Std Deviation 61.7 H Plt Count 392 Neut % (Auto) 77 Lymph % (Auto) 12 [place] % (Auto) 9 Eos % (Auto) 2 Baso % (Auto) 1 Neut # (Auto) 7.5 Lymph # (Auto) 1.1 [place] # (Auto) 0.9 H Eos # (Auto) 0.2 Baso # (Auto) 0.1 Immature Gran # (Auto) 0.03 H Absolute Nucleated RBC 0.00 Immature Gran % 0 Nucleated RBC % 0 Sodium 137 Potassium 3.8 Chloride 105 Carbon Dioxide 25.8 Anion Gap 6 L BUN 13 Creatinine 0.8 Estim Creat Clear Calc 86.2 eGFR > 60 BUN/Creatinine Ratio 16 Glucose 76 D Calculated Osmolality 272 L Calcium 9.0 Corrected Calcium 9.3 Phosphorus 2.7 Magnesium 2.1 Total Bilirubin 0.7 AST 10 ALT < 7 L Alkaline Phosphatase 48 Total Protein 6.6 Albumin 3.6 Globulin 3.0 Albumin/Globulin Ratio 1.2 Impressions Impression: # Status post right colectomy with ileocolonic anastomosis Doing well postoperatively Continue current management Assessment & Plan A&P Narrative 1. Suspected malignancy, hepatic flexure. 2. Thickened lowered wall of the esophagus endoscopy pending 3. Dr Acharya general surgeon has spoken with family regarding need for surgery. 4. Will check pathology and follow as needed. Thank you for allowing me to evaluate this patient Time Spent With Patient Time: Total time spent is greater than 50% in coordination of care (as documented) at patient's floor/unit and/or counseling patient:
[2024-07-13] MEDS: PANTOPRAZOLE 40 MG TABLET PO (20:51)
[2024-07-13] MEDS: CLARITHROMYCIN 250 MG TABLET 500 MG PO (20:52)
[2024-07-13] MEDS: AMOXICILLIN 250 MG CAPSULE 1000 MG PO (21:36)
[2024-07-14] VITALS (9 sets, daily range): BP systolic 138–171; BP diastolic 71–92; PULSE 60–76; RESP 16–98; TEMP 36.1–36.3; O2SAT 92–98
[2024-07-14 05:40] LABS: Basophils # (Auto) 0.1 Thou/mm3 (0.0-0.2); Basophils % (Auto) 1 % (0-2.5); Eosinophils # (Auto) 0.3 Thou/mm3 (0.0-0.5); Eosinophils % (Auto) 4 % (0-10); Hematocrit 31.3 % (41.0-53.0); Hemoglobin 9.2 g/dL (13.5-16.0); Immature Granulocytes % (Auto) 0 % (0-0); Immature Granulocytes Auto 0.03 Thou/mm3 (0.00-0.00); Lymphocytes # (Auto) 1.1 Thou/mm3 (1.0-4.8); Lymphocytes % (Auto) 12 % (10-50); Mean Corpuscular HGB Conc 29.4 g/dl (31.0-37.0); Mean Corpuscular Hemoglobin 22.8 pg (25.0-35.0); Mean Corpuscular Volume 78 fL (80-100); Monocytes # (Auto) 0.9 Thou/mm3 (0.0-0.8); Monocytes % (Auto) 10 % (0-12); Neutrophils # (Auto) 6.7 Thou/mm3 (1.8-7.7); Neutrophils % (Auto) 74 % (37-80); Nucleated Red Blood Cell % 0 /100 WBC (0); Platelet Count 354 Thou/mm3 (140-440); RDW Standard Deviation 60.9 fL (35.1-43.9); Red Blood Count 4.04 Miln/mm3 (4.50-5.90); White Blood Count 9.1 Thou/mm3 (3.8-10.6)
[2024-07-14 06:20] LABS: Alanine Aminotransferase < 7 U/L (10-49); Anion Gap 8 (7-16); Aspartate Amino Transferase 10 U/L (0-34); BUN/Creatinine Ratio 13 Ratio (12-20); Bilirubin,Total 0.9 mg/dL (0.3-1.2); Blood Urea Nitrogen 8 mg/dL (9-23); Carbon Dioxide 25.3 mMol/L (20.0-31.0); Chloride 101 mMol/L (98-107); Creatinine (Component) 0.6 mg/dL (0.6-1.3); Glucose 71 mg/dL (74-106); Magnesium 1.8 mg/dL (1.6-2.6); Osmolality,Calculated 264 (275-295); Phosphorous 2.5 mg/dL (2.4-5.1); Potassium 3.9 mMol/L (3.4-5.1); Sodium 134 mMol/L (136-145); eGFR > 60 See Note
[2024-07-14 06:21] LABS: Albumin, Serum 3.7 gm/dL (3.4-4.8); Albumin/Globulin Ratio 1.1 (1.2-2.2); Alkaline Phosphatase 50 U/L (46-116); Calcium (Corrected) 9.2 mg/dL (8.5-10.1); Globulin 3.3 gm/dL (2.3-3.5)
--- NOTE | 2024-07-14 07:25 | ESPR_ITS ---
<Statement entered by Asmita Fountain MD - 07/15/24 09:23> Patient was seen and examined by me personally. I have directly supervised and reviewed the below documentation by the team resident and agree with its findings with any exceptions or additional findings as below. Plan of care was discussed with the attending, Dr. Hodge. Patient reports feeling very well this morning, tolerating liquids and walking around, however had not passed gas or had bowel movement yet. Suspect post-op ileus, will continue with same management and await return of bowel function, continue to encourage patient ambulation and advancing diet. Recommended to discontinue BURNER TECHNICIAN pain pump as patient reports not needing as many doses. Continue triple therapy treatment for H. pylori. Asmita Fountain, PGY-2 Documentation for date of: 07/14/24 Subjective Subjective Interval history: No acute overnight events. Working with physical therapy. Able to urinate independently. Has not passed gas or bowel. Denies fever, chills, headaches, chest pain, sob, cough, vomiting nausea or diarrhea, or urinary symptoms. Exam Vital Signs Temp Pulse Resp BP Pulse Ox O2 Del Method O2 Flow Rate 97.4 F 64 17 158/75 H 92 L Room Air 1 07/14/24 04:00 07/14/24 04:00 07/14/24 04:00 07/14/24 04:00 07/14/24 04:00 07/14/24 04:00 07/13/24 12:00 Narrative Exam GENERAL: Normal appearing elderly male, NAD HEENT: NCAT.?LAURA. Oral mucosa is moist. Patent Nares NECK: Supple, nontender, no thyromegaly, no meningismus, no JVD, no step offs CHEST: Symmetrical, atraumatic, and with equal expansion, Nontender on palpation no deformity and no crepitus. CARDIOVASCULAR: RRR, no m/g/r LUNGS: CTAB, no w/r/r. Symmetrical chest rise. No intercostal subcostal retraction. ABDOMEN: Abdominal binder in place, clean and dry, tenderness to deep palpation. Bowel sounds present EXTREMITIES: Nontender.? No edema/cyanosis.?Moves all 4 extremities well, with full ROM and good CSM. SKIN: Warm and dry, no jaundice/rashes. MSK: No lumbar or midline, no CVA, no paraspinal muscle spasm or tenderness. NEURO: ERWIN x4, CN II-XII grossly intact.?No focal neurologic deficits. PSYCHIATRIC: Normal mood and affect, cooperative, no SI or HI or hallucinations. Objective Labs 07/15/24 06:54 07/15/24 06:54 Labs: Laboratory Results - last 24 hr 07/14/24 04:55 WBC 9.1 RBC 4.04 L Hgb 9.2 L Hct 31.3 L MCV 78 L MCH 22.8 L MCHC 29.4 L RDW Std Deviation 60.9 H Plt Count 354 D Neut % (Auto) 74 Lymph % (Auto) 12 [place] % (Auto) 10 Eos % (Auto) 4 Baso % (Auto) 1 Neut # (Auto) 6.7 Lymph # (Auto) 1.1 [place] # (Auto) 0.9 H Eos # (Auto) 0.3 Baso # (Auto) 0.1 Immature Gran # (Auto) 0.03 H Absolute Nucleated RBC 0.00 Immature Gran % 0 Nucleated RBC % 0 Sodium 134 L Potassium 3.9 Chloride 101 Carbon Dioxide 25.3 Anion Gap 8 BUN 8 L Creatinine 0.6 Estim Creat Clear Calc 115.0 eGFR > 60 BUN/Creatinine Ratio 13 Glucose 71 L Calculated Osmolality 264 L Calcium 9.0 Corrected Calcium 9.2 Phosphorus 2.5 Magnesium 1.8 Total Bilirubin 0.9 AST 10 ALT < 7 L Alkaline Phosphatase 50 Total Protein 7.0 Albumin 3.7 Globulin 3.3 Albumin/Globulin Ratio 1.1 L Quality Measures Quality Measures none Advance care planning discussed with:: patient Assessment & Plan Assessment Current Active Medications: Generic Name Dose Route Start Last Admin Trade Name Raven PRN Reason Stop Dose Admin Acetaminophen 650 mg 07/08/24 20:02 Acetaminophen 325 Mg Tablet PO 08/07/24 20:01 Q6H PRN Mild Pain 1-3 or Fever >100.3 Amoxicillin 1,000 mg 07/13/24 21:00 07/13/24 21:36 Amoxicillin 250 Mg Capsule PO 07/27/24 20:59 1,000 mg BID HANNA Administration Ascorbic Acid 500 mg 07/11/24 21:00 07/13/24 20:51 Ascorbic Acid 250 Mg Tablet PO 08/10/24 20:59 500 mg BID HANNA Administration Clarithromycin 500 mg 07/13/24 21:00 07/13/24 20:52 Clarithromycin 250 Mg Tablet PO 07/27/24 20:59 500 mg BID HANNA Administration Dextrose 25 ml 07/08/24 20:07 Dextrose 50%-Water Inj 50 Ml Syringe IV 08/07/24 20:06 Q15MIN PRN BG 50-70 responsive npo pt Dextrose 50 ml 07/08/24 20:07 Dextrose 50%-Water Inj 50 Ml Syringe IV 08/07/24 20:06 Q15MIN PRN BG <50 OR BG <70 & pt unresponsive Docusate Sodium 100 mg 07/11/24 21:00 07/13/24 20:51 Docusate Sod 100 Mg Capsule PO 08/10/24 20:59 100 mg BID HANNA Administration Protocol Glucagon 1 mg 07/08/24 20:07 Glucagon Inj 1 Mg Vial IM Q15MIN PRN BG <70, and no IV access Insulin Human Lispro 0 unit 07/09/24 06:00 07/14/24 06:00 Insulin Lispro (Admelog) 1 Unit/0.01 Ml Unit SC 08/08/24 05:59 Not Given Q6HR [facility] Protocol Losartan Potassium 50 mg 07/14/24 09:00 Losartan Potassium 25 Mg Tablet PO 08/13/24 08:59 QDAY [facility] Morphine Sulfate 0 mg 07/11/24 15:43 07/13/24 12:34 Morphine Sulf 1 Mg/Ml Display Manager Syringe 30 Ml BURNER TECHNICIAN 07/16/24 15:42 30 mg PER ORDER HANNA Administration Protocol Ondansetron HCl 4 mg 07/08/24 20:02 Ondansetron Inj 2 Mg/Ml Inj 2 Ml IV 08/07/24 20:01 Q6H PRN NAUSEA OR VOMITING Protocol Pantoprazole Sodium 40 mg 07/13/24 21:00 07/13/24 20:51 Pantoprazole 40 Mg Tablet PO 07/27/24 20:59 40 mg BID HANNA Administration Zinc Sulfate 220 mg 07/12/24 09:00 07/13/24 08:24 Zinc Sulfate 220 Mg Capsule PO 08/11/24 08:59 220 mg QDAY HANNA Administration Plan In summary: 78-year-old male with PMHx of HTN, T2DM, GERD, PUD, HLD, alcohol use disorder admitted for acute GI bleed. Admission Hgb 5.1, s/p 4 units RBCs, hemoglobin 7.9. Colonoscopy done showed multiple large polyps, ulcerative/obstructive mass at the hepatic flexure with oozing, among others. EGD showing esophagitis, no mass or active bleed, biopsied. POD 3 colonic mass resection with general surgery. Results from colonoscopy suggested no carcinoma. Dr. Duque following. Diet was advanced to clear liquid, patient tolerating. Still hasn't passed gas or bowel. # Large, obstructive, ulcerated colonic mass # Acute GI Blood Loss: Upper versus lower GI bleed # Dyspnea # Pre-syncope # GERD # PUD History of melanic stool, history of PUD, GERD, alcohol use (quit 6 months ago) Dyspnea and presyncope without fall 2/2 blood loss Hgb 5.1 on admission, s/p 3 units, repeat Hgb 6.3 CT mass in cecum, thickening lower esophagus S/p 5 units RBC and 1 unit FFP, Hgb 0.7 Colonoscopy showed >1 cm sessile polyp of transverse colon, large ulcerated/obstructive mass near hepatic flexure with oozing, few small diverticuli of the sigmoid and descending colon, and hemorrhoids, last resected and biopsy. EGD showed reflux esophagitis, biopsied, esophageal ulcers, no bleed. Peripheral blood smear results showed microcytic anemia CEA normal Underwent EXLAP with findings of large, obstructing tumor of distal ascending colon near hepatic flexure with blue marking clearly visible. No evidence of omental or peritoneal nodules. Anterior surface of the liver was smooth without any lesions or nodules. 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 Advancing diet to clear liquid, patient tolerating without nausea or vomiting ? Continue n.p.o. per surgery recommendations ? Continue PROTONIX 40 IV BID ? BURNER TECHNICIAN pump for pain, managed by general surgery ? Avoid NSAIDs ? Transfuse if Hgb less than 7 ? Follow-up outpatient for iron deficiency anemia # H. pylori Esophageal biopsy positive for H. pylori. We started triple therapy as below. ? Continue PROTONIX 40 mg BID (07/13 to 07/27) ? Continue AMOXICILLIN 1000 mg BID (07/13 to 07/27) ? Continue CLARITHROMYCIN 500 mg BID (07/13 to 07/27) ? Will need follow-up with GI upon discharge # T2DM 1C5.4 this visit, GLUCOSE controled ? Holding home meds ? INSULIN sliding scale ? Daily GLUCOSE # Hypertension History of hypertension, on LISINOPRIL, complains of chronic cough BP 150/73 Increased LOSARTAN dose as below ? Holding home LISINOPRIL 5 mg 2/2 cough ? Continue LOSARTAN 50 mg daily ? Consider discharging patient on LOSARTAN 25 mg daily of LISINOPRIL # Incidental Pulmonary Nodules As seen on CT: Multiple noncalcified pulmonary nodules ? Recommended follow-up with PCP outpatient Health maintenance Diet: NPO GI prophylaxis: PROTONIX DVT prophylaxis: SCD CODE STATUS: Full code Disposition: pending colonoscopy Patient case was discussed with attending, Dr. Ayesha DO, and senior resident Dr. Fountain. Mamie Chen DO PGYI Attending Provider Attestation/Addendum Meche, Doris Hodge DO, attest that I was physically present for the boswell portions of the service and evaluated the patient with the resident and I reviewed and discussed the case with the resident and agree with the resident's findings and plans of care as documented above Patient seen and evaluated this a.m. He is frustrated and states that he already took his antibiotics this morning, but the nurse states that the amoxicillin was not available this morning during med Pass. However, upon giving patient the amoxicillin once available, patient stated that he had already taken it and had refused it. Explained to patient that he is on multiple antibiotics for the H. pylori. Patient then agreed to take his medication. Patient reports minimal pain and likely not need morphine BURNER TECHNICIAN. Will transition to IV pain medicine. Patient has been tolerating clear liquid diet, but has not had a bowel movement or passed flatus. Continue with clear liquids at this time. Encourage patient to ambulate and use incentive spirometer otherwise. No acute events overnight patient remains afebrile
[2024-07-14] MEDS: DOCUSATE SOD 100 MG CAPSULE PO (09:16)
[2024-07-14] MEDS: ZINC SULFATE 220 MG CAPSULE PO (09:17)
[2024-07-14] MEDS: ASCORBIC ACID 250 MG TABLET 500 MG PO ×2 (09:17→22:17)
[2024-07-14] MEDS: PANTOPRAZOLE 40 MG TABLET PO ×2 (09:17→22:19)
[2024-07-14] MEDS: CLARITHROMYCIN 250 MG TABLET 500 MG PO ×2 (09:23→22:16)
[2024-07-14] MEDS: LOSARTAN POTASSIUM 25 MG TABLET 50 MG PO (09:25)
--- NOTE | 2024-07-14 10:38 | CHAP ---
Patient was visited by the Spiritual Care Volunteer who prayed with them. (Volunteer was in the hospital from 09:50-10:38).
[2024-07-14] MEDS: ACETAMINOPHEN 325 MG TABLET 650 MG PO ×2 (15:41→22:18)
[2024-07-14] MEDS: INSULIN LISPRO (AdmeLOG) 1 UNIT/0.01 ML UNIT SC ×2 (17:32→22:29)
--- NOTE | 2024-07-14 20:15 | ESPR_ITS ---
Documentation for date of: 07/14/24 Subjective Subjective Interval history: No passage of flatus or bowel movement Abdomen not distended Tolerating liquid diet Exam Vital Signs Temp Pulse Resp BP Pulse Ox O2 Del Method O2 Flow Rate 97.0 F 71 17 146/71 H 98 Room Air 1 07/14/24 16:00 07/14/24 16:00 07/14/24 16:00 07/14/24 16:00 07/14/24 16:00 07/14/24 16:00 07/14/24 12:00 Objective Labs 07/14/24 04:55 07/14/24 04:55 Labs: Laboratory Results - last 24 hr 07/11/24 07/14/24 09:52 04:55 WBC 9.1 RBC 4.04 L Hgb 9.2 L Hct 31.3 L MCV 78 L MCH 22.8 L MCHC 29.4 L RDW Std Deviation 60.9 H Plt Count 354 D Neut % (Auto) 74 Lymph % (Auto) 12 [place] % (Auto) 10 Eos % (Auto) 4 Baso % (Auto) 1 Neut # (Auto) 6.7 Lymph # (Auto) 1.1 [place] # (Auto) 0.9 H Eos # (Auto) 0.3 Baso # (Auto) 0.1 Immature Gran # (Auto) 0.03 H Absolute Nucleated RBC 0.00 Immature Gran % 0 Nucleated RBC % 0 Sodium 134 L Potassium 3.9 Chloride 101 Carbon Dioxide 25.3 Anion Gap 8 BUN 8 L Creatinine 0.6 Estim Creat Clear Calc 115.0 eGFR > 60 BUN/Creatinine Ratio 13 Glucose 71 L Calculated Osmolality 264 L Calcium 9.0 Corrected Calcium 9.2 Phosphorus 2.5 Magnesium 1.8 Total Bilirubin 0.9 AST 10 ALT < 7 L Alkaline Phosphatase 50 Total Protein 7.0 Albumin 3.7 Globulin 3.3 Albumin/Globulin Ratio 1.1 L Crossmatch See Detail Impressions Impression: # Status post exploratory laparotomy with resection of the right colon with anastomosis continue current management Assessment & Plan A&P Narrative 1. Suspected malignancy, hepatic flexure. 2. Thickened lowered wall of the esophagus endoscopy pending 3. Dr Acharya general surgeon has spoken with family regarding need for surgery. 4. Will check pathology and follow as needed. Thank you for allowing me to evaluate this patient Time Spent With Patient Time: Total time spent is greater than 50% in coordination of care (as documented) at patient's floor/unit and/or counseling patient:
[2024-07-14] MEDS: AMOXICILLIN 250 MG CAPSULE 1000 MG PO (22:18)
[2024-07-15] VITALS (9 sets, daily range): BP systolic 119–160; BP diastolic 70–87; PULSE 63–88; RESP 16–97; TEMP 36.1–36.7; O2SAT 95–96; BMI 24.4
[2024-07-15] MEDS: INSULIN LISPRO (AdmeLOG) 1 UNIT/0.01 ML UNIT SC ×4 (07:29→20:09)
[2024-07-15 07:34] LABS: Basophils # (Auto) 0.1 Thou/mm3 (0.0-0.2); Basophils % (Auto) 1 % (0-2.5); Eosinophils # (Auto) 0.2 Thou/mm3 (0.0-0.5); Eosinophils % (Auto) 2 % (0-10); Hematocrit 34.2 % (41.0-53.0); Hemoglobin 10.4 g/dL (13.5-16.0); Immature Granulocytes % (Auto) 0 % (0-0); Immature Granulocytes Auto 0.03 Thou/mm3 (0.00-0.00); Lymphocytes # (Auto) 0.6 Thou/mm3 (1.0-4.8); Lymphocytes % (Auto) 8 % (10-50); Mean Corpuscular HGB Conc 30.4 g/dl (31.0-37.0); Mean Corpuscular Hemoglobin 23.4 pg (25.0-35.0); Mean Corpuscular Volume 77 fL (80-100); Monocytes # (Auto) 0.9 Thou/mm3 (0.0-0.8); Monocytes % (Auto) 11 % (0-12); Neutrophils # (Auto) 6.2 Thou/mm3 (1.8-7.7); Neutrophils % (Auto) 78 % (37-80); Nucleated Red Blood Cell % 0 /100 WBC (0); Platelet Count 394 Thou/mm3 (140-440); RDW Standard Deviation 60.8 fL (35.1-43.9); Red Blood Count 4.44 Miln/mm3 (4.50-5.90); White Blood Count 7.9 Thou/mm3 (3.8-10.6)
--- NOTE | 2024-07-15 07:42 | PD.RESPRO ---
Documentation for date of: 07/15/24 Subjective Subjective Interval history: No acute overnight events. Patient has been gas and well, soft, nonbloody stool. Tolerating clear liquid diet without nausea or vomiting. Ambulating independently. Denies fever, chills, headaches, chest pain, sob, cough, GI or urinary symptoms. Exam Vital Signs Temp Pulse Resp BP Pulse Ox O2 Del Method O2 Flow Rate 97.2 F 77 17 153/86 H 95 Room Air 1 07/15/24 07:28 07/15/24 07:28 07/15/24 07:28 07/15/24 07:28 07/15/24 07:28 07/15/24 07:07/14/24 12:00 Narrative Exam GENERAL: Normal appearing elderly male, NAD HEENT: NCAT.?LAURA. Oral mucosa is moist. Patent Nares NECK: Supple, nontender, no thyromegaly, no meningismus, no JVD, no step offs CHEST: Symmetrical, atraumatic, and with equal expansion, Nontender on palpation no deformity and no crepitus. CARDIOVASCULAR: RRR, no m/g/r LUNGS: CTAB, no w/r/r. Symmetrical chest rise. No intercostal subcostal retraction. ABDOMEN: Abdominal binder in place, clean and dry, tenderness to deep palpation. Bowel sounds present EXTREMITIES: Nontender.? No edema/cyanosis.?Moves all 4 extremities well, with full ROM and good CSM. SKIN: Warm and dry, no jaundice/rashes. MSK: No lumbar or midline, no CVA, no paraspinal muscle spasm or tenderness. NEURO: ERWIN x4, CN II-XII grossly intact.?No focal neurologic deficits. PSYCHIATRIC: Normal mood and affect, cooperative, no SI or HI or hallucinations. Objective Labs 07/16/24 05:32 07/16/24 05:32 Labs: Laboratory Results - last 24 hr 07/11/24 07/15/24 09:52 06:54 WBC 7.9 RBC 4.44 L Hgb 10.4 L Hct 34.2 L MCV 77 L MCH 23.4 L MCHC 30.4 L RDW Std Deviation 60.8 H Plt Count 394 D Neut % (Auto) 78 Lymph % (Auto) 8 L [place] % (Auto) 11 Eos % (Auto) 2 Baso % (Auto) 1 Neut # (Auto) 6.2 Lymph # (Auto) 0.6 L [place] # (Auto) 0.9 H Eos # (Auto) 0.2 Baso # (Auto) 0.1 Immature Gran # (Auto) 0.03 H Absolute Nucleated RBC 0.00 Immature Gran % 0 Nucleated RBC % 0 Crossmatch See Detail Quality Measures Quality Measures none Advance care planning discussed with:: patient Assessment & Plan Assessment Current Active Medications: Generic Name Dose Route Start Last Admin Trade Name Raven PRN Reason Stop Dose Admin Acetaminophen 650 mg 07/08/24 20:02 07/14/24 22:18 Acetaminophen 325 Mg Tablet PO 08/07/24 20:01 650 mg Q6H PRN Administration Mild Pain 1-3 or Fever >100.3 Amoxicillin 1,000 mg 07/13/24 21:00 07/14/24 22:18 Amoxicillin 250 Mg Capsule PO 07/27/24 20:59 1,000 mg BID HANNA Administration Ascorbic Acid 500 mg 07/11/24 21:00 07/14/24 22:17 Ascorbic Acid 250 Mg Tablet PO 08/10/24 20:59 500 mg BID HANNA Administration Clarithromycin 500 mg 07/13/24 21:00 07/14/24 22:16 Clarithromycin 250 Mg Tablet PO 07/27/24 20:59 500 mg BID HANNA Administration Dextrose 25 ml 07/08/24 20:07 Dextrose 50%-Water Inj 50 Ml Syringe IV 08/07/24 20:06 Q15MIN PRN BG 50-70 responsive npo pt Dextrose 50 ml 07/08/24 20:07 Dextrose 50%-Water Inj 50 Ml Syringe IV 08/07/24 20:06 Q15MIN PRN BG <50 OR BG <70 & pt unresponsive Docusate Sodium 100 mg 07/11/24 21:00 07/14/24 22:17 Docusate Sod 100 Mg Capsule PO 08/10/24 20:59 Not Given BID HANNA Protocol Glucagon 1 mg 07/08/24 20:07 Glucagon Inj 1 Mg Vial IM Q15MIN PRN BG <70, and no IV access Insulin Human Lispro 0 unit 07/14/24 17:00 07/15/24 07:29 Insulin Lispro (Admelog) 1 Unit/0.01 Ml Unit SC 08/13/24 16:59 1 unit ACHS HANNA Administration Protocol Losartan Potassium 50 mg 07/14/24 09:00 07/14/24 09:25 Losartan Potassium 25 Mg Tablet PO 08/13/24 08:59 50 mg QDAY HANNA Administration Morphine Sulfate 2 mg 07/14/24 12:01 Morphine Sulf Inj 10 Mg/Ml Vial IVP 07/19/24 12:00 Q2H PRN PAIN SCALE 7-10 (Severe Ondansetron HCl 4 mg 07/08/24 20:02 Ondansetron Inj 2 Mg/Ml Inj 2 Ml IV 08/07/24 20:01 Q6H PRN NAUSEA OR VOMITING Protocol Pantoprazole Sodium 40 mg 07/13/24 21:00 07/14/24 22:19 Pantoprazole 40 Mg Tablet PO 07/27/24 20:59 40 mg BID HANNA Administration Zinc Sulfate 220 mg 07/12/24 09:00 07/14/24 09:17 Zinc Sulfate 220 Mg Capsule PO 08/11/24 08:59 220 mg QDAY HANNA Administration Plan In summary: 78-year-old male with PMHx of HTN, T2DM, GERD, PUD, HLD, alcohol use disorder admitted for acute GI bleed. Admission Hgb 5.1, s/p 4 units RBCs, hemoglobin 7.9. Colonoscopy done showed multiple large polyps, ulcerative/obstructive mass at the hepatic flexure with oozing, among others. EGD showing esophagitis, no mass or active bleed, biopsied. POD 4 colonic mass resection with general surgery. Results from colonoscopy suggested no carcinoma. Dr. Duque following. Diet was advanced to clear liquid, patient tolerating. Passing gas and had small bowel movement this morning. We advance to soft diet. Patient will likely discharge home tomorrow if continues to tolerate diet. # Large, obstructive, ulcerated colonic mass # Acute GI Blood Loss: Upper versus lower GI bleed # Dyspnea # Pre-syncope # GERD # PUD History of melanic stool, history of PUD, GERD, alcohol use (quit 6 months ago) Dyspnea and presyncope without fall 2/2 blood loss Hgb 5.1 on admission, s/p 3 units, repeat Hgb 6.3 CT mass in cecum, thickening lower esophagus S/p 5 units RBC and 1 unit FFP, Hgb 0.7 Colonoscopy showed >1 cm sessile polyp of transverse colon, large ulcerated/obstructive mass near hepatic flexure with oozing, few small diverticuli of the sigmoid and descending colon, and hemorrhoids, last resected and biopsy. EGD showed reflux esophagitis, biopsied, esophageal ulcers, no bleed. Peripheral blood smear results showed microcytic anemia CEA normal Underwent EXLAP with findings of large, obstructing tumor of distal ascending colon near hepatic flexure with blue marking clearly visible. No evidence of omental or peritoneal nodules. Anterior surface of the liver was smooth without any lesions or nodules. 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 Tolerating clear liquid diet well. We advance to soft diet. Passing gas and BMs. Ambulating independently. Dr Marck baez with patient discharging tomorrow if continues to tolerate diet. ? Continue PROTONIX 40 IV BID ? GAS APPLIANCE SERVICER pump for pain, managed by general surgery ? Avoid NSAIDs ? Transfuse if Hgb less than 7 ? Follow-up outpatient for iron deficiency anemia # H. pylori Esophageal biopsy positive for H. pylori. We started triple therapy as below. ? Continue PROTONIX 40 mg BID (07/13 to 07/27) ? Continue AMOXICILLIN 1000 mg BID (07/13 to 07/27) ? Continue CLARITHROMYCIN 500 mg BID (07/13 to 07/27) ? Will need follow-up with GI upon discharge # T2DM 1C5.4 this visit, GLUCOSE controled ? Holding home meds ? INSULIN sliding scale ? Daily GLUCOSE # Hypertension History of hypertension, on LISINOPRIL, complains of chronic cough BP 153/86 Increased LOSARTAN dose as below ? Holding home LISINOPRIL 5 mg 2/2 cough ? Continue LOSARTAN 50 mg daily ? Consider discharging patient on LOSARTAN 25 mg daily of LISINOPRIL # Incidental Pulmonary Nodules As seen on CT: Multiple noncalcified pulmonary nodules ? Recommended follow-up with PCP outpatient Health maintenance Diet: Soft diet GI prophylaxis: PROTONIX DVT prophylaxis: SCD CODE STATUS: Full code Disposition: pending colonoscopy Patient case was discussed with attending, Dr. Ayesha DO, and senior resident Dr. Fountain. Mamie Chen DO PGYI Senior Resident Attestation: The patient is s/p colonic mass removal. He reported pain being well managed. He denied any fever or chills, nausea. We have discontinued morphine pump and started on as needed IV morphine. We will continue with as needed IV Zofran and continue to advance diet. General surgeon, Dr. Acharya on board. If his pain is well controlled by tomorrow we will discharge him. I discussed with and supervised the internet marketing intern physician involved in the care of this patient. I personally saw and examined the patient and discussed the assessment and plan with the entire medicine team, including my attending. I agree with the assessment and plan as documented above. Andrew Rendon MD PGY2 Internal Medicine Attending Provider Attestation/Addendum I, Doris Hodge DO, attest that I was physically present for the [place] portions of the service and evaluated the patient with the resident and I reviewed and discussed the case with the resident and agree with the resident's findings and plans of care as documented above Patient seen and evaluated this AM. No acute events overnight. Patient has had 2 BMs and diet advanced by surgeon. Will continue to monitor for pain control and encouraged use of PO Aspen rather than IV morphine. Encouraged ambulation. Anticipate DC in AM if patient tolerates diet. Daughter and are at bedside. All questions and concerns addressed to family and patient's satisfaction.
[2024-07-15 07:52] LABS: Alanine Aminotransferase < 7 U/L (10-49); Albumin, Serum 3.9 gm/dL (3.4-4.8); Albumin/Globulin Ratio 1.1 (1.2-2.2); Alkaline Phosphatase 55 U/L (46-116); Anion Gap 7 (7-16); Aspartate Amino Transferase 15 U/L (0-34); BUN/Creatinine Ratio 11 Ratio (12-20); Blood Urea Nitrogen 8 mg/dL (9-23); Calcium 10.1 mg/dL (8.3-10.6); Calcium (Corrected) 10.2 mg/dL (8.5-10.1); Chloride 100 mMol/L (98-107); Creatinine (Component) 0.7 mg/dL (0.6-1.3); Estimated Creatinine Clearance 98.5 mL/min (>60); Globulin 3.5 gm/dL (2.3-3.5); Glucose 137 mg/dL (74-106); Magnesium 1.8 mg/dL (1.6-2.6); Osmolality,Calculated 264 (275-295); Phosphorous 3.2 mg/dL (2.4-5.1); Potassium 4.5 mMol/L (3.4-5.1); Sodium 132 mMol/L (136-145); Total Protein 7.4 gm/dL (5.7-8.2); eGFR > 60 See Note
--- NOTE | 2024-07-15 08:10 | PC.NURSE ---
Patient does not want to take medications. Wants me to return in an hour. Will continue to monitos patient
[2024-07-15] MEDS: PANTOPRAZOLE 40 MG TABLET PO ×2 (09:03→20:10)
[2024-07-15] MEDS: AMOXICILLIN 250 MG CAPSULE 1000 MG PO ×2 (09:03→20:10)
[2024-07-15] MEDS: ASCORBIC ACID 250 MG TABLET 500 MG PO ×2 (09:03→20:10)
[2024-07-15] MEDS: ZINC SULFATE 220 MG CAPSULE PO (09:04)
[2024-07-15] MEDS: DOCUSATE SOD 100 MG CAPSULE PO ×2 (09:04→20:11)
[2024-07-15] MEDS: CLARITHROMYCIN 250 MG TABLET 500 MG PO ×2 (09:04→20:11)
[2024-07-15] MEDS: LOSARTAN POTASSIUM 25 MG TABLET 50 MG PO (09:04)
[2024-07-15] MEDS: MORPHINE SULF INJ 10 MG/ML VIAL 2 MG IVP (09:12)
--- NOTE | 2024-07-15 10:15 | CHAP ---
Patient was visited by the Spiritual Care Volunteer who prayed with them. (Volunteer was in the hospital from 08:30-10:15).
--- NOTE | 2024-07-15 11:07 | PC.NURSE ---
Called Dr. Acharya patient may shower and he will come and speak to the family at 11:30
--- NOTE | 2024-07-15 12:05 | ESPR_ITS ---
Documentation for date of: 07/15/24 Subjective Subjective Narrative: Patient is seen and examined. His pain is improving. He is tolerating liquid diet without nausea or vomiting. He started passing flatus and had small bowel movement Exam Vital Signs Temp Pulse Resp BP Pulse Ox O2 Del Method O2 Flow Rate 97.2 F 88 17 134/76 H 95 Room Air 1 07/15/24 11:36 07/15/24 11:36 07/15/24 11:36 07/15/24 11:36 07/15/24 11:36 07/15/24 11:36 07/14/24 12:00 Constitutional Constitutional: no acute distress Routine Abdominal Exam Abdominal: Present soft, normoactive bowel sounds, tenderness (Mild jv- incisional tenderness. Incision is clean, dry and intact) and distended (Minimally distended) Assessment & Plan Assessment Additional comments: Postop day #4 status post exploratory laparotomy with right colectomy Plan Will advance to soft diet. If if patient is tolerating soft diet and continues to have bowel movement, will discharge home tomorrow Procedures Procedures Exploratory laparotomy, right colectomy
--- NOTE | 2024-07-15 16:37 | PC.SS ---
Rounding note: plan is to increase diet and decrease pain medication before discharge.
--- NOTE | 2024-07-15 19:03 | PC.NURSE ---
Daughter does not want morphine to be given to father.
--- NOTE | 2024-07-15 22:34 | ESPR_ITS ---
Documentation for date of: 07/15/24 Subjective Subjective Interval history: Had a small bowel movement Passing flatus Advance diet Exam Vital Signs Temp Pulse Resp BP Pulse Ox O2 Del Method O2 Flow Rate 97.0 F 74 16 119/70 96 Room Air 1 07/15/24 20:00 07/15/24 20:00 07/15/24 20:00 07/15/24 20:00 07/15/24 20:00 07/15/24 20:00 07/14/24 12:00 Objective Labs 07/15/24 06:54 07/15/24 06:54 Labs: Laboratory Results - last 24 hr 07/15/24 06:54 WBC 7.9 RBC 4.44 L Hgb 10.4 L Hct 34.2 L MCV 77 L MCH 23.4 L MCHC 30.4 L RDW Std Deviation 60.8 H Plt Count 394 D Neut % (Auto) 78 Lymph % (Auto) 8 L [place] % (Auto) 11 Eos % (Auto) 2 Baso % (Auto) 1 Neut # (Auto) 6.2 Lymph # (Auto) 0.6 L [place] # (Auto) 0.9 H Eos # (Auto) 0.2 Baso # (Auto) 0.1 Immature Gran # (Auto) 0.03 H Absolute Nucleated RBC 0.00 Immature Gran % 0 Nucleated RBC % 0 Sodium 132 L Potassium 4.5 D Chloride 100 Carbon Dioxide 25.0 Anion Gap 7 BUN 8 L Creatinine 0.7 Estim Creat Clear Calc 98.5 eGFR > 60 BUN/Creatinine Ratio 11 L Glucose 137 H D Calculated Osmolality 264 L Calcium 10.1 Corrected Calcium 10.2 H Phosphorus 3.2 Magnesium 1.8 Total Bilirubin 1.0 AST 15 ALT < 7 L Alkaline Phosphatase 55 Total Protein 7.4 Albumin 3.9 Globulin 3.5 Albumin/Globulin Ratio 1.1 L Impressions Impression: # Status post exploratory laparotomy right colectomy Passing flatus and had a bowel movement Advance diet Assessment & Plan A&P Narrative 1. Suspected malignancy, hepatic flexure. 2. Thickened lowered wall of the esophagus endoscopy pending 3. Dr Acharya general surgeon has spoken with family regarding need for surgery. 4. Will check pathology and follow as needed. Thank you for allowing me to evaluate this patient Time Spent With Patient Time: Total time spent is greater than 50% in coordination of care (as documented) at patient's floor/unit and/or counseling patient:
[2024-07-16] VITALS: BP 139/82; PULSE 82; RESP 16; TEMP 36.4; O2SAT 93
[2024-07-16 04:00] VITALS: BP 130/76; PULSE 73; RESP 18; TEMP 36.8; O2SAT 95
[2024-07-16 06:22] LABS: Basophils # (Auto) 0.1 Thou/mm3 (0.0-0.2); Basophils % (Auto) 1 % (0-2.5); Eosinophils # (Auto) 0.3 Thou/mm3 (0.0-0.5); Eosinophils % (Auto) 4 % (0-10); Hematocrit 32.1 % (41.0-53.0); Hemoglobin 9.9 g/dL (13.5-16.0); Immature Granulocytes % (Auto) 0 % (0-0); Immature Granulocytes Auto 0.02 Thou/mm3 (0.00-0.00); Lymphocytes # (Auto) 1.2 Thou/mm3 (1.0-4.8); Lymphocytes % (Auto) 20 % (10-50); Mean Corpuscular HGB Conc 30.8 g/dl (31.0-37.0); Mean Corpuscular Hemoglobin 23.2 pg (25.0-35.0); Mean Corpuscular Volume 75 fL (80-100); Monocytes # (Auto) 0.9 Thou/mm3 (0.0-0.8); Monocytes % (Auto) 14 % (0-12); Neutrophils # (Auto) 3.7 Thou/mm3 (1.8-7.7); Neutrophils % (Auto) 60 % (37-80); Nucleated Red Blood Cell % 0 /100 WBC (0); Platelet Count 329 Thou/mm3 (140-440); Red Blood Count 4.26 Miln/mm3 (4.50-5.90); White Blood Count 6.1 Thou/mm3 (3.8-10.6)
[2024-07-16 07:01] LABS: Anion Gap 9 (7-16); BUN/Creatinine Ratio 9 Ratio (12-20); Blood Urea Nitrogen 6 mg/dL (9-23); Carbon Dioxide 23.1 mMol/L (20.0-31.0); Chloride 103 mMol/L (98-107); Creatinine (Component) 0.7 mg/dL (0.6-1.3); Estimated Creatinine Clearance 98.5 mL/min (>60); Glucose 115 mg/dL (74-106); Potassium 4.3 mMol/L (3.4-5.1); Sodium 135 mMol/L (136-145); eGFR > 60 See Note
[2024-07-16 07:02] LABS: Alanine Aminotransferase < 7 U/L (10-49); Albumin, Serum 3.7 gm/dL (3.4-4.8); Albumin/Globulin Ratio 1.2 (1.2-2.2); Alkaline Phosphatase 48 U/L (46-116); Aspartate Amino Transferase 22 U/L (0-34); Bilirubin,Total 0.8 mg/dL (0.3-1.2); Calcium 9.3 mg/dL (8.3-10.6); Calcium (Corrected) 9.5 mg/dL (8.5-10.1); Globulin 3.1 gm/dL (2.3-3.5); Magnesium 1.8 mg/dL (1.6-2.6); Osmolality,Calculated 268 (275-295); Phosphorous 3.6 mg/dL (2.4-5.1); Total Protein 6.8 gm/dL (5.7-8.2)
[2024-07-16 07:33] VITALS: BP 120/71; PULSE 68; RESP 18; TEMP 36.2; O2SAT 95
[2024-07-16 07:39] VITALS: PULSE 78; RESP 20; RESP 94
[2024-07-16] MEDS: INSULIN LISPRO (AdmeLOG) 1 UNIT/0.01 ML UNIT SC (08:06)
--- NOTE | 2024-07-16 08:17 | PD.ONCPROG ---
Documentation for date of: 07/16/24 Subjective Subjective Interval history: Patient post laparotomy right colectomy with invasive adenocarcinoma moderately differentiated hepatic flexure mass. No loss of expression. Recovering satisfactorily eating foods passing bowel continence. Exam Vital Signs Temp Pulse Resp BP Pulse Ox O2 Del Method O2 Flow Rate 97.2 F 78 20 120/71 95 Room Air 1 07/16/24 07:33 07/16/24 07:39 07/16/24 07:39 07/16/24 07:33 07/16/24 07:33 07/16/24 07:33 07/14/24 12:00 Objective Objective Narrative Objective Narrative: Appears well eating and passing bowel contents. Labs 07/16/24 05:32 07/16/24 05:32 Labs: Laboratory Results - last 24 hr 07/16/24 05:32 WBC 6.1 RBC 4.26 L Hgb 9.9 L Hct 32.1 L MCV 75 L MCH 23.2 L MCHC 30.8 L RDW Std Deviation 62.0 H Plt Count 329 D Neut % (Auto) 60 Lymph % (Auto) 20 [place] % (Auto) 14 H Eos % (Auto) 4 Baso % (Auto) 1 Neut # (Auto) 3.7 Lymph # (Auto) 1.2 [place] # (Auto) 0.9 H Eos # (Auto) 0.3 Baso # (Auto) 0.1 Immature Gran # (Auto) 0.02 H Absolute Nucleated RBC 0.00 Immature Gran % 0 Nucleated RBC % 0 Sodium 135 L Potassium 4.3 Chloride 103 Carbon Dioxide 23.1 Anion Gap 9 BUN 6 L Creatinine 0.7 Estim Creat Clear Calc 98.5 eGFR > 60 BUN/Creatinine Ratio 9 L Glucose 115 H Calculated Osmolality 268 L Calcium 9.3 Corrected Calcium 9.5 Phosphorus 3.6 Magnesium 1.8 Total Bilirubin 0.8 AST 22 ALT < 7 L Alkaline Phosphatase 48 Total Protein 6.8 Albumin 3.7 Globulin 3.1 Albumin/Globulin Ratio 1.2 Assessment & Plan A&P Narrative 1. Invasive adenocarcinoma moderately differentiated no loss of expression. Status post right colectomy. 2. H. pylori-like organisms stomach but no malignancy noted on esophagogastroduodenoscopy with biopsy. 3. Patient given info on follow-up at the cancer center, for further workup and any adjuvant therapy that may be needed. Time Spent With Patient Time: Total time spent is greater than 50% in coordination of care (as documented) at patient's floor/unit and/or counseling patient:
[2024-07-16] MEDS: ASCORBIC ACID 250 MG TABLET 500 MG PO (08:39)
[2024-07-16] MEDS: CLARITHROMYCIN 250 MG TABLET 500 MG PO (08:39)
[2024-07-16] MEDS: AMOXICILLIN 250 MG CAPSULE 1000 MG PO (08:39)
[2024-07-16 08:40] VITALS: BP 120/71; PULSE 78
[2024-07-16] MEDS: LOSARTAN POTASSIUM 25 MG TABLET 50 MG PO (08:40)
[2024-07-16] MEDS: PANTOPRAZOLE 40 MG TABLET PO (08:40)
[2024-07-16] MEDS: ZINC SULFATE 220 MG CAPSULE PO (08:40)
[2024-07-16] MEDS: HYDROcodone/APAP 5/325 TABLET 1 TAB PO (09:08)
--- NOTE | 2024-07-16 10:30 | ESPR_ITS ---
Documentation for date of: 07/16/24 Subjective Subjective Narrative: Patient is seen and examined. His pain is improving. He is tolerating soft diet without nausea or vomiting and continues to have bowel movements Exam Vital Signs Temp Pulse Resp BP Pulse Ox O2 Del Method O2 Flow Rate 97.2 F 78 20 120/71 95 Room Air 1 07/16/24 07:33 07/16/24 08:40 07/16/24 07:39 07/16/24 08:40 07/16/24 07:33 07/16/24 07:33 07/14/24 12:00 Constitutional Constitutional: no acute distress Routine Abdominal Exam Abdominal: Present soft, normoactive bowel sounds and tenderness (Minimal jv- incisional tenderness. Incision is clean, dry and intact); Absent distended Assessment & Plan Assessment Additional comments: Postop day #5 status post right colectomy. 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 Please refer to discharge instructions Procedures Procedures Exploratory laparotomy, right colectomy
[2024-07-16 11:25] VITALS: BP 122/74; PULSE 72; RESP 20; TEMP 36.2; O2SAT 95
--- NOTE | 2024-07-16 12:05 | PC.SS ---
Follow up note: SS spoke to daughterBirdie re: discharge needs. Daughter is agreeable to HH and has no preference. Last p.c.p. visit was on the day of admission.
--- NOTE | 2024-07-16 17:20 | ESDS_ITS ---
<Statement entered by Doris Hodge DO - 07/17/24 08:12> I, Doris Hodge DO, attest that I was physically present for the boswell portions of the service and evaluated the patient with the resident and I reviewed and discussed the case with the resident and agree with the resident's findings and plans of care as documented above Planned Discharge Date 07/16/24 DS: Providers Provider Date of admission: 07/08/24 20:02 Primary care physician: Lencho Aaron MD Admitting Provider: Lui Lunsford MD Attending Provider on Admission: Doris Hodge DO Consults: 07/08/24 17:37 Consult to Gastroenterology Stat Comment: Consulting Provider: Gina Rojas 07/08/24 23:50 [facility] Referral - Knowledge Deficit Routine Comment: Positive screening for knowledge deficit needs. 07/08/24 23:51 Referral Physical Therapy Routine Comment: Physician Instructions: Referral Registered Dietitian Routine Comment: Referral Respiratory Therapy Routine Comment: Referral Speech Therapy Routine Comment: 07/10/24 08:04 Consult to General Surgery Routine Comment: Obstructive clonic mass Consulting Provider: Janessa Acharya 07/10/24 08:23 Consult to Oncology Routine Comment: Colonic mass, CEA pending Consulting Provider: Taj Duque Attending Provider on DC: Doris Hodge DO Discharging Provider: Chad Herrmann MD DS: Diagnosis Problem List Completed Was Problem List Reviewed/Reconciled?: Yes Hospital Course Hospital Course Hospital course: 78-year-old male with PMHx of HTN, T2DM, GERD, PUD, HLD, alcohol use disorder p resenting with complaint of low hemoglobin on outpatient labs and melena, admitted for acute GI bleed. Patient hemoglobin 5.1 on admission, received 4 units PRBCs. Colonoscopy performed showed several large polyps and a ulcerative obstructive mass oozing blood of the hepatic flexure. Patient also underwent EGD which showed nonbleeding esophageal ulcers. Patient underwent exploratory laparotomy with colectomy, tolerated procedure well. Diet was slowly advanced back to patient's usual diet, patient passing gas and having regular bowel movements without pain, patient independently ambulatory. Patient initially treated with PLANER OFFBEARER pump, weaned down to oral pain medication. EGD biopsy results showed H. pylori, patient started on triple therapy. Patient cleared from surgery and GI perspective. Patient medically cleared and stable for discharge. Discharge planning: Please follow-up with your PCP within 1 week of discharge. You have been started on amoxicillin thousand Mg twice daily and clarithromycin 500 Mg twice daily for 12 more days You have been started on pantoprazole 40 Mg twice daily for 26 days, please take this medicine 45 to 60 minutes before food Continue taking vitamin C 500 Mg twice daily and zinc sulfate daily for 12 more days. You have been started on lisinopril 5 Mg daily Please take hydrocodone/acetaminophen 5/325 mg for severe pain up to 4 times a day as needed Please take docusate sodium 100 Mg twice daily as needed for constipation -May shower. Wear abdominal binder at all times. Avoid lifting, straining, pulling or pushing for 8 weeks. May take over the counter laxatives if no bowel movement in 2 days. Follow up with Dr. Acharya in 2 weeks, call [phone] for an appointment. Continue soft diet for 1 week then advance diet as tolerated. -Recommended to return back to emergency department if your symptoms persist or does not improve. 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 pylori # Dyspnea # Pre-syncope # GERD # PUD # T2DM # Hypertension # Incidental Pulmonary Nodules Plan of care discussed with senior resident Dr. Hankins PGY?[address] Hodge. Chad Herrmann MD PGY-1 Time Spent with Patient Time attestation: Total time spent providing and/or coordinating discharge services: >35min Exam Vital Signs Temp Pulse Resp BP Pulse Ox O2 Del Method O2 Flow Rate 97.2 F 72 20 122/74 95 Room Air 1 07/16/24 11:25 07/16/24 11:25 07/16/24 11:25 07/16/24 11:25 07/16/24 11:25 07/16/24 11:25 07/14/24 12:00 Narrative Exam GENERAL: Normal appearing elderly male, NAD HEENT: NCAT.?LAURA. Oral mucosa is moist. Patent Nares CHEST: Symmetrical, atraumatic, and with equal expansion, Nontender on palpation, no deformity, and no crepitus. CARDIOVASCULAR: RRR, no m/g/r LUNGS: CTAB, no w/r/r. Symmetrical chest rise. No intercostal subcostal retraction. ABDOMEN: Abdominal binder in place, clean and dry, tenderness to deep palpation. EXTREMITIES: Nontender.? No edema/cyanosis.?Moves all 4 extremities well, with full ROM. SKIN: Warm and dry, no jaundice/rashes. MSK: No lumbar or midline, no CVA, no paraspinal muscle spasm or tenderness. NEURO: A&Ox4, CN II-XII grossly intact.?No focal neurologic deficits. Discharge Plan Plan Patient Disposition: Home w/HOME HEALTH Patient condition on transfer: Stable Care Plan Goals: Please follow-up with your PCP within 1 week of discharge. You have been started on amoxicillin thousand Mg twice daily and clarithromycin 500 Mg twice daily for 12 more days You have been started on pantoprazole 40 Mg twice daily for 26 days, please take this medicine 45 to 60 minutes before food Continue taking vitamin C 500 Mg twice daily and zinc sulfate daily for 12 more days. You have been started on lisinopril 5 Mg daily Please take hydrocodone/acetaminophen 5/325 mg for severe pain up to 4 times a day as needed Please take docusate sodium 100 Mg twice daily as needed for constipation -May shower. Wear abdominal binder at all times. Avoid lifting, straining, pulling or pushing for 8 weeks. May take over the counter laxatives if no bowel movement in 2 days. Follow up with Dr. Acharya in 2 weeks, call [phone] for an appointment. Continue soft diet for 1 week then advance diet as tolerated. -Recommended to return back to emergency department if your symptoms persist or does not improve. Prescriptions/Referrals Prescriptions/Med Rec: New amoxicillin 500 mg capsule 1,000 mg PO BID 12 Days Qty: 48 0RF ascorbic acid (vitamin C) [Vitamin C] 250 mg Tablet 500 mg PO BID Qty: 48 0RF clarithromycin 500 mg tablet 500 mg PO BID 12 Days Qty: 24 0RF pantoprazole 40 mg Tablet,Delayed Release (Dr/Ec) 40 mg PO BID 26 Days Qty: 52 0RF zinc sulfate 50 mg zinc (220 mg) Capsule 220 mg PO QDAY 12 Days Qty: 60 0RF lisinopril 5 mg tablet 5 mg PO QDAY Qty: 30 0RF docusate sodium 100 mg Capsule 100 mg PO BID Qty: 60 0RF hydrocodone-acetaminophen 5-325 mg Tablet 1 tab PO Q6H MDD 4 PRN (Reason: Pain Scale 7-10 (Severe) Qty: 20 0RF Referrals: Lencho Aaron MD [Primary Care Provider] - Patient/Caregiver Discharge Instructions Discharge Activity: activity as tolerated Other Discharge Activity Instructions:: Please follow-up with your PCP within 1 week of discharge. You have been started on amoxicillin thousand Mg twice daily and clarithromycin 500 Mg twice daily for 12 more days You have been started on pantoprazole 40 Mg twice daily for 26 days, please take this medicine 45 to 60 minutes before food Continue taking vitamin C 500 Mg twice daily and zinc sulfate daily for 12 more days. You have been started on lisinopril 5 Mg daily Please take hydrocodone/acetaminophen 5/325 mg for severe pain up to 4 times a day as needed Please take docusate sodium 100 Mg twice daily as needed for constipation -May shower. Wear abdominal binder at all times. Avoid lifting, straining, pulling or pushing for 8 weeks. May take over the counter laxatives if no bowel movement in 2 days. Follow up with Dr. Acharya in 2 weeks, call [phone] for an appointment. Continue soft diet for 1 week then advance diet as tolerated. -Recommended to return back to emergency department if your symptoms persist or does not improve. Education Materials: Surgery Anesthesia After, Exploratory Laparotomy, Colonoscopy, Upper GI Endoscopy, Preventing Surgical Site Infections Print Language: Syrian Activity Restrictions/Additional Instructions: May shower. Wear abdominal binder at all times. Avoid lifting, straining, pulling or pushing for 8 weeks. May take over the counter laxatives if no bowel movement in 2 days. Follow up with Dr. Acharya in 2 weeks, call [phone] for an appointment. Continue soft diet for 1 week then advance diet as tolerated. Stand Alone Forms: Padmini Award Info., Patient Portal Info Letter Discharge Order Discharge Orders: Discharge (Routine); Ordered 07/16/24 Ordered By: Andrew Rendon Quality Discharge Quality Measures VTE prophylaxis
--- NOTE | 2024-07-17 11:35 | PC.CM ---
I called Dr. Rendon to let him know they need to put in home health orders.
--- NOTE | 2024-07-17 13:31 | PC.CM ---
Patient had no preference so I sent referral to [facility].
--- NOTE | 2024-07-17 15:59 | PC.CM ---
Patient has been accepted by [facility]. They will open patient on 07/19.
== END 2024-07-16 12:22 | disposition home health service (06) | DRG 330 ==
LOC: SERX 17:37 → SERHOLD 20:43 → S3SX 23:23
PROVIDERS: Physician Assistant; Specialist; Student in an Organized Health Care Education/Training Program; Surgery; Admitting Provider Student in an Organized Health Care Education/Training Program; Emergency Provider Emergency Medicine; PCP Student in an Organized Health Care Education/Training Program; Visit Provider Internal Medicine
PROC: 0DJD8ZZ Inspection of Lower Intestinal Tract, Via Natural or Artificial Opening Endoscopic (ICD-10-PCS; CPT 45378; principal; 2024-07-09 11:30)
PROC: 0DB38ZX Excision of Lower Esophagus, Via Natural or Artificial Opening Endoscopic, Diagnostic (ICD-10-PCS; CPT 43239; principal; 2024-07-10 13:15)
PROC: 0DTF0ZZ Resection of Right Large Intestine, Open Approach (ICD-10-PCS; CPT 49000; principal; 2024-07-11 16:15)
DX: C18.3 Malignant neoplasm of hepatic flexure (principal); D62 Acute posthemorrhagic anemia; K63.3 Ulcer of intestine; K22.10 Ulcer of esophagus without bleeding; K64.9 Unspecified hemorrhoids; K57.30 Diverticulosis of large intestine without perforation or abscess without bleeding; I10 Essential (primary) hypertension; K21.9 Gastro-esophageal reflux disease without esophagitis; E78.00 Pure hypercholesterolemia, unspecified; K29.60 Other gastritis without bleeding; D12.3 Benign neoplasm of transverse colon; R91.8 Other nonspecific abnormal finding of lung field; F10.10 Alcohol abuse, uncomplicated; Y90.0 Blood alcohol level of less than 20 mg/100 ml; K21.00 Gastro-esophageal reflux disease with esophagitis, without bleeding; B96.81 Helicobacter pylori [H. pylori] as the cause of diseases classified elsewhere; E11.9 Type 2 diabetes mellitus without complications; Z66 Do not resuscitate; Z87.891 Personal history of nicotine dependence; Z87.11 Personal history of peptic ulcer disease; Z86.0100 Personal history of colon polyps, unspecified; Z91.148 Patient's other noncompliance with medication regimen for other reason; Z79.899 Other long term (current) drug therapy
CPT/HCPCS: 36415; 36430; 36600; 71275; 74174; 80048; 80053; 80069; 80307; 80320; 82378; 82803; 83605; 83690; 83735; 84100; 84484; 85014; 85018; 85025; 85610; 85730; 86850; 86900; 86901; 86923; 86927; 87811; 92610; 93005; 93225; 94664; 94762; 96374; 97162; 99285; A4216; A4649; J0131; J0694; J1100; J1200; J1815; J1885; J2250; J2270; J2405; J2470; J2704; J3010; J3480; J3490; J7050; P9016; P9060; Q9967; A9270; G0480

== ENCOUNTER 2024-08-26 07:43 | Outpatient (RCR) | payer OTHER, SELFPAY ==
--- NOTE | 2024-08-26 15:08 | CTCCONSULT_ITS ---
Patient: VANESSA IZAGUIRRE : 1945 MR#: [id number] Page 2 of 2 NEW PATIENT VISIT / CONSULTATION DATE OF CONSULTATION: 08/26/2024 NAME: VANESSA IZAGUIRRE ACCOUNT: [id number] : 1945 AGE: 78 REFERRING PHYSICIAN: Lencho Aaron MD PRIMARY PHYSICIAN: Lencho Aaron MD REASON FOR VISIT: New diagnosis of colon cancer Anemia Iron deficiency HISTORY OF PRESENT ILLNESS: 78-year-old male with a new diagnosis of colon cancer here for establishing care. Patient was admitt ed in the hospital with severe anemia and found to have colon cancer. Patient is now status post hem icolectomy. Patient had T3 tumor and was found to have 1 lymph node positive. ONCOLOGY HISTORY: 07/11/2024-adenocarcinoma of colon stage IIIb status post hemicolectomy Adjuvant chemotherapy with DIAGNOSIS: Malignant neoplasm of overlapping sites of colon [ICD10] C18.8 DATE OF DIAGNOSIS: 07/11/2024 STAGE/TNM: IIIB T3 N1 M0 07/11/24. MSH2 IHC: NO LOSS OF EXPRESSION. MSH6 IHC: NO LOSS OF EXPRESSION. PMSZ IHC: LOSS OF EXPRESSION. MLH1 IHC: LOSS OF EXPRESSION. B. Transverse colon polyps x2. colonoscopy with poiypectomy: - Tubular adenoma(s) - Negative for high -grade dysplasia RECEIVED: l DIAGNOSIS: Right colon, terminal ileum and appendix, right hemicolectomy: - Inva sive medullary carcinoma, poorly differentiated, pT3 N1 a - Surgical margins are negative - One posit aditi lymph node out of total 29 lymph nodes (1129) - Appendix and terminal ileum are unremarkable Comm ent: Specimen: Right colon Other' organs received: terminal ileum and appendix Procedure: right denise- colectomy Tumor site: right colon Tumor size: 6.0 x 5.5 x 1.0 cm Macroscopic tumor perforation: not s een Histolo?gic type: invasive adenocarcinoma with focal mucinous features Histologic grade: 3, poorl y differentiated (<10% gland formation) Microscopic tumor extension: invading through muscularis prop darrion into subserosal tissue Margins: Proximal: negative, >5 cm away from the tumor Distal: negative, > 5 cm away from the tumor Mesenteric (radial for rectal cancers): negative, >1 cm away from the tumor Treatment effect: nla Lymph-Vascular invasion: present Perineural invasion: not seen Tumor deposits ( discontinuous extramural extension): not seen Lymph nodes (pericolonic): 10/16 Number of lymph nodes e xamined: 29 total lymph nodes Number of lymph nodes involved: one is positive for carcinoma Pathologl c staging (pTNM): pT3 Tumor invades through the muscularis propria into pericolorectal tissues pN1a O ne regional lymph node is positive TREATMENT HISTORY: Adjuvant 5-FU for 6 months OTHER MEDICAL HISTORY/CONDITIONS: Invasive adenocarcinoma colon - 07/09/24 HTN Diabetes Alcohol abuse Exploratory Laporotomy; right colectomy - 07/11/24 FAMILY HISTORY: Mother:?Lung?-?dx?-?age?80 Sibling: Sister - Lung and uterine - dx 64 SOCIAL HISTORY: 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 Tobacco Use:?Smoked 2 PPD x 40 yrs - quit 20yrs ago ETOH Use:?Quit 3 months ago - 1-2 - 6 packs/day x 40yrs Drug?Note:?Denies Social?History?Note:?Lives?with? MEDICATIONS: 1. lisinopril - 5 mg 1 tab Daily 2. metFORMIN - 1,000 mg 1 tab Daily 3. Vitamin C - 1,000 mg 1 tab Weekly Medications Last Reconciled by Aimee Gleason RN on 08/26/2024 ALLERGIES: No Known Drug Allergies REVIEW OF SYSTEMS: A complete 14-point review of systems was performed and is negative except as noted in interval histo ry. PHYSICAL EXAMINATION: VITAL SIGNS: Temperature?99.5, B/P?156/82, Height?70?inches, Oxygen?Saturation?99% Weight?178?lbs PAIN: 0 - No pain GENERAL APPEARANCE: Appears well, in no apparent distress, appropriately interactive. HEENT: Normocephalic, no temporal wasting, normal conjunctiva, no scleral icterus, normal hearing, li ps without lesions, neck normal range of motion. CARDIOVASCULAR: Not assessed. PULMONARY: Normal respiratory effort, no respiratory distress or use of accessory muscles, speaking i n full sentences, no tachypnea. EXTREMITIES: No pedal edema or cyanosis. SKIN: Normal skin appearance. NEUROLOGIC: Alert and ORIENTED x4. PHYCHIATRIC: Appropriate affect, mood normal, behavior normal, intact thought and speech. LABORATORY DATA: I have personally reviewed and interpreted each of the patient?s relevant lab tests, abnormal finding s are below: Date 08/26/24 ??RED?BLOOD?COUNT?(Miln/mm3) 4.27?L ??HEMOGLOBIN?(gm/dl) 10.8?L ??HEMATOCRIT?(%) 34.7?L ??RDW?(RBC?DISTRIBUTION?WDTH)?SD?(fl) 74.8?H ??MONO?%,?AUTO?(%) 13?H ??IMMATURE?GRANULOCYTES,?AUTO?(Thou/mm3) 0.01?H ??GLUCOSE,RANDOM?(mg/dL) 117?H ??OSMOLALITY,?CALC 273?L ??BUN/CREATININE?RATIO?(Ratio) 11?L IMPRESSION/PLAN: Colon adenocarcinoma stage IIIb T3 N1 M0 Patient have lung nodules which are calcified nodules and all are less than 8 mm It will be very hard to biopsy and risk of perforation causing pneumothorax or high Will start patient on adjuvant chemotherapy Patient is more than 70-year-old so we will start on 5-FU instead of FOLFOX as oxaliplatin is not hav e benefit in more than 70-year-old patient's Port catheter placement PET CT scan Start 5-FU as soon as possible CBC CMP CEA level ordered RETURN TO CLINIC: Before second cycle of chemotherapy BILLING AND COMPLIANCE: I reviewed external records from providers outside my specialty as summarized above. I spent a total of 50 minutes on this patient?s care on the day of their visit excluding time spent related to any bi lled procedures. This time includes time spent with the patient as well as time spent documenting in the medical record, reviewing patients records and tests, obtaining history, placing orders, communi cating with other healthcare professionals, counseling the patient, family or caregiver, and/or care coordination for the diagnoses above. Electronically Signed by: Washington Siu MD T: 3:06 PM CC: PCP: Lencho Aaron Referring: Lencho Aaron This document was completed utilizing speech recognition software. Grammatical errors, random word in sertions, pronoun errors, and incomplete sentences are an occasional consequence of this system due t o software limitations, ambient noise, and hardware issues. Any formal questions or concerns about th e content, text or information contained within the body of this dictation should be directly address ed to the provider for clarification.
== END 2024-09-17 23:59 | disposition home or self-care (01) ==
LOC: SCTC 07:43
PROVIDERS: PCP Student in an Organized Health Care Education/Training Program; Referring Provider Student in an Organized Health Care Education/Training Program; Visit Provider Internal Medicine Hematology & Oncology
DX: C18.2 Malignant neoplasm of ascending colon (principal); R91.8 Other nonspecific abnormal finding of lung field; Z90.49 Acquired absence of other specified parts of digestive tract
CPT/HCPCS: 99213; G0463

== ENCOUNTER → 2024-08-26 | Outpatient (CLI) | payer OTHER, SELFPAY ==
[2024-08-26 11:35] LABS: Basophils # (Auto) 0.1 Thou/mm3 (0.0-0.2); Basophils % (Auto) 1 % (0-2.5); Eosinophils # (Auto) 0.1 Thou/mm3 (0.0-0.5); Eosinophils % (Auto) 1 % (0-10); Hematocrit 34.7 % (41.0-53.0); Hemoglobin 10.8 g/dL (13.5-16.0); Immature Granulocytes % (Auto) 0 % (0-0); Immature Granulocytes Auto 0.01 Thou/mm3 (0.00-0.00); Lymphocytes # (Auto) 1.4 Thou/mm3 (1.0-4.8); Lymphocytes % (Auto) 26 % (10-50); Mean Corpuscular HGB Conc 31.1 g/dl (31.0-37.0); Mean Corpuscular Hemoglobin 25.3 pg (25.0-35.0); Mean Corpuscular Volume 81 fL (80-100); Monocytes # (Auto) 0.7 Thou/mm3 (0.0-0.8); Monocytes % (Auto) 13 % (0-12); Neutrophils # (Auto) 3.1 Thou/mm3 (1.8-7.7); Neutrophils % (Auto) 58 % (37-80); Nucleated Red Blood Cell % 0 /100 WBC (0); Platelet Count 289 Thou/mm3 (140-440); RDW Standard Deviation 74.8 fL (35.1-43.9); Red Blood Count 4.27 Miln/mm3 (4.50-5.90); White Blood Count 5.3 Thou/mm3 (3.8-10.6)
[2024-08-26 11:59] LABS: Alanine Aminotransferase 11 U/L (10-49); Albumin, Serum 4.7 gm/dL (3.4-4.8); Albumin/Globulin Ratio 1.7 (1.2-2.2); Alkaline Phosphatase 56 U/L (46-116); Anion Gap 7 (7-16); Aspartate Amino Transferase 14 U/L (0-34); BUN/Creatinine Ratio 11 Ratio (12-20); Bilirubin,Total 0.8 mg/dL (0.3-1.2); Blood Urea Nitrogen 9 mg/dL (9-23); Calcium 9.5 mg/dL (8.3-10.6); Calcium (Corrected) 9.5 mg/dL (8.5-10.1); Carbon Dioxide 26.9 mMol/L (20.0-31.0); Chloride 103 mMol/L (98-107); Creatinine (Component) 0.8 mg/dL (0.6-1.3); Globulin 2.8 gm/dL (2.3-3.5); Glucose 117 mg/dL (74-106); Osmolality,Calculated 273 (275-295); Potassium 4.2 mMol/L (3.4-5.1); Sodium 137 mMol/L (136-145); Total Protein 7.5 gm/dL (5.7-8.2); eGFR > 60 See Note
[2024-08-26 12:02] LABS: Carcinoembryonic Antigen 2.3 ng/mL (0.0-5.0); Folate 19.96 ng/mL (>5.38)
[2024-08-26 12:20] LABS: Ferritin 11 ng/mL (10.5-307.3); Iron 100 mcg/dL (65-175); Percent Iron Saturation 25 % (20-55); Total Iron Binding Capacity 388 mcg/dL (250-425); Unsaturated Iron Binding 288 (225-295)
[2024-08-26 14:50] LABS: Cocci Serology, IgM Negative (Negative)
[2024-08-27 11:27] LABS: Cocci Serology, IgG Negative (Negative)
== END | disposition home or self-care (01) ==
PROVIDERS: PCP Student in an Organized Health Care Education/Training Program; Referring Provider Internal Medicine Hematology & Oncology; Visit Provider Internal Medicine Hematology & Oncology
DX: C18.8 Malignant neoplasm of overlapping sites of colon (principal)
CPT/HCPCS: 36415; 80053; 82378; 82728; 82746; 83540; 83550; 85025; 86331; 86635

== ENCOUNTER → 2024-10-17 | Outpatient (CLI) | payer OTHER, SELFPAY ==
[2024-10-17 10:41] LABS: Basophils # (Auto) 0.1 Thou/mm3 (0.0-0.2); Basophils % (Auto) 1 % (0-2.5); Eosinophils # (Auto) 0.1 Thou/mm3 (0.0-0.5); Eosinophils % (Auto) 2 % (0-10); Hematocrit 35.2 % (41.0-53.0); Hemoglobin 11.6 g/dL (13.5-16.0); Immature Granulocytes % (Auto) 0 % (0-0); Immature Granulocytes Auto 0.02 Thou/mm3 (0.00-0.00); Lymphocytes # (Auto) 1.3 Thou/mm3 (1.0-4.8); Lymphocytes % (Auto) 20 % (10-50); Mean Corpuscular Hemoglobin 29.7 pg (25.0-35.0); Mean Corpuscular Volume 90 fL (80-100); Monocytes % (Auto) 15 % (0-12); Neutrophils # (Auto) 4.1 Thou/mm3 (1.8-7.7); Neutrophils % (Auto) 62 % (37-80); Nucleated Red Blood Cell % 0 /100 WBC (0); Platelet Count 250 Thou/mm3 (140-440); RDW Standard Deviation 64.6 fL (35.1-43.9); Red Blood Count 3.91 Miln/mm3 (4.50-5.90); White Blood Count 6.5 Thou/mm3 (3.8-10.6)
[2024-10-17 11:18] LABS: Ferritin 15 ng/mL (10.5-307.3); Iron 151 mcg/dL (65-175); Percent Iron Saturation 41 % (20-55); Total Iron Binding Capacity 365 mcg/dL (250-425); Unsaturated Iron Binding 214 (225-295)
== END | disposition home or self-care (01) ==
LOC: COPL 09:20
PROVIDERS: PCP Student in an Organized Health Care Education/Training Program; Referring Provider Student in an Organized Health Care Education/Training Program; Visit Provider Student in an Organized Health Care Education/Training Program
DX: D50.9 Iron deficiency anemia, unspecified (principal)
CPT/HCPCS: 36415; 82728; 83540; 83550; 85025